=== PATIENT | male | born 1980 | race Caucasian/White ===

== ENCOUNTER 2016-08-03 17:04 | Emergency (ER) | payer BC ==
--- NOTE | 2016-08-03 17:29 | ER Document Report ---
ED Medical Screen (RME) - General Chief Complaint: Headache Stated Complaint: HEADACHE Notes: Migraine headache for 6 days with very limited intermittent relief I greeted and performed a rapid initial assessment of this patient. Comprehensive ED assessment and evaluation of the patient, analysis of test results and completion of the medical decision making process will be conducted by additional ED providers. TRAVEL OUTSIDE OF THE [place] IN LAST 30 DAYS: No - Related Data Allergies/Adverse Reactions: No Known Allergies Allergy (Verified 11/29/15 18:35) Past Medical History - Past Medical History Cardiac Medical History: Reports: Hx Hypercholesterolemia Musculoskeltal Medical History: Reports Hx Arthritis - BACK - Immunizations Hx Diphtheria, Pertussis, Tetanus Vaccination: Yes - UTD Physical Exam - Vital signs Vitals: Temp Pulse Resp BP Pulse Ox 99.1 F 73 16 140/79 H 97 08/03/16 17:26 08/03/16 17:26 08/03/16 17:26 08/03/16 17:26 08/03/16 17:26 Course - Vital Signs Vital signs: Temp Pulse Resp BP Pulse Ox 99.1 F 73 16 140/79 H 97 08/03/16 17:26 08/03/16 17:26 08/03/16 17:26 08/03/16 17:26 08/03/16 17:26
[2016-08-03] MEDS ORDERED: HYDROMORPHONE HCL INJ/PF 2 MG/ML AMPULE IM ONE (17:51)
[2016-08-03] MEDS ORDERED: PROMETHAZINE HCL INJ 50 MG/1 ML VIAL IM PRN (17:52)
--- NOTE | 2016-08-03 17:55 | ER Document Report ---
ED Headache - General Chief Complaint: Headache Stated Complaint: HEADACHE Time seen by provider: 17:53 TRAVEL OUTSIDE OF THE [place] IN LAST 30 DAYS: No - HPI Patient complains to provider of: "Migraine" - pt . with h/o migraine was recurrent typical migraine for the past 6 days. Plus N, no vomiting. Has no pain meds for migraine at home. - Related Data Allergies/Adverse Reactions: No Known Allergies Allergy (Verified 11/29/15 18:35) Past Medical History - General Information source: Patient, Relative - Social History Smoking Status: Unknown if Ever Smoked Cigarette use (# per day): No Chew tobacco use (# tins/day): No Smoking Education Provided: No Family History: Reviewed & Not Pertinent, CAD Patient has suicidal ideation: No Patient has homicidal ideation: No - Past Medical History Cardiac Medical History: Reports: Hx Hypercholesterolemia Neurological Medical History: Reports: Hx Migraine Renal/ Medical History: Denies: Hx Peritoneal Dialysis Musculoskeltal Medical History: Reports Hx Arthritis - BACK - Immunizations Hx Diphtheria, Pertussis, Tetanus Vaccination: Yes - UTD Review of Systems - Review of Systems Constitutional: No symptoms reported EENT: No symptoms reported Cardiovascular: No symptoms reported Respiratory: No symptoms reported Gastrointestinal: No symptoms reported Neurological/Psychological: See HPI, Headaches -: Yes All other systems reviewed and negative Physical Exam - Vital signs Vitals: Temp Pulse Resp BP Pulse Ox 99.1 F 73 16 140/79 H 97 08/03/16 17:26 08/03/16 17:26 08/03/16 17:26 08/03/16 17:26 08/03/16 17:26 - General General appearance: Appears well In distress: Mild - HEENT Pharynx: Normal Neck: Normal - Respiratory Respiratory status: No respiratory distress Breath sounds: Normal - Cardiovascular Rhythm: Regular Heart sounds: Normal auscultation - Neurological Neuro grossly intact: Yes Cognition: Normal Orientation: AAOx4 Motor strength normal: LUE, RUE, LLE, RLE Sensory: Normal Course - Re-evaluation Re-evalutation: 08/03/16 18:50 pt feels much better after pain meds -- [place] relieved -- will drive home - Vital Signs Vital signs: Temp Pulse Resp BP Pulse Ox 99.1 F 73 16 140/79 H 97 08/03/16 17:26 08/03/16 17:26 08/03/16 17:26 08/03/16 17:26 08/03/16 17:26 Discharge - Discharge Clinical Impression: Cephalalgia Qualifiers: Headache type: other headache syndrome Qualified Code(s): G44.89 - Other headache syndrome Condition: Stable Disposition: HOME, SELF-CARE Instructions: Headache ([facility]), Pain Medication Injection ([facility]) Additional Instructions: rest, take meds as prescribed, return if worse Prescriptions: Ondansetron HCl [Zofran 4 mg Tablet] 1 - 2 tab PO Q4H PRN #10 tablet PRN Reason: Tramadol HCl 50 mg PO BID #14 tablet Referrals: KAYCE CALDERON MD [ACTIVE STAFF] - Follow up as needed
[2016-08-03] MEDS ORDERED: ONDANSETRON 4 MG TAB.RAPDIS PO ONE (18:57)
[2016-08-03 19:09] VITALS: BP 132/75
== END 2016-08-03 19:08 | disposition home or self-care (01) ==
LOC: ER 17:04
DX: G44.89 Other headache syndrome (principal)
CPT/HCPCS: 99283; 96372; S0119; J1170

== ENCOUNTER → 2016-08-25 | Outpatient (CLI) | payer BC ==
[~2016-08-25] MED LIST: DIAZEPAM 5 MG TABLET ONE
== END ==
LOC: RAD 14:33
PROVIDERS: ATTEND Physician Assistant
DX: M54.2 Cervicalgia (principal); M51.27 Other intervertebral disc displacement, lumbosacral region; M48.02 Spinal stenosis, cervical region
CPT/HCPCS: 72141; 72148

== ENCOUNTER → 2016-10-15 | Outpatient (CLI) | payer BC | LOC: RAD 09:08 | PROVIDERS: ATTEND Student in an Organized Health Care Education/Training Program | DX: M54.16 Radiculopathy, lumbar region (principal); M54.14 Radiculopathy, thoracic region | CPT/HCPCS: 72070; 72110 ==

== ENCOUNTER 2016-11-04 18:49 | Emergency (ER) | payer BC ==
--- NOTE | 2016-11-04 20:17 | ER Document Report ---
ED Medical Screen (RME) - General Chief Complaint: Ankle Swelling Stated Complaint: ANKLE SWELLING Time seen by provider: 20:16 Mode of Arrival: Wheelchair Information source: Patient TRAVEL OUTSIDE OF THE [place] IN LAST 30 DAYS: No - HPI Patient complains to provider of: bilateral lower extremity swelling Onset: Yesterday Onset/Duration: Gradual Quality of pain: Achy, Fullness, Pressure Severity: Moderate Exacerbated by: Denies Relieved by: Denies Similar symptoms previously: No Recently seen / treated by doctor: Yes Notes: 11/04/16 20:16 Patient is a 36-year-old male who presents to the emergency room complaining of bilateral lower extremity pain and swelling been going on for the past 2 days, he denies a history of similar symptoms previously, no new medications or medication changes, he denies any cough, cold or congestion, no nausea, vomiting or diarrhea, no chest pain or shortness of breath, he did have an injury recently were he fell off of a roof landing on his back causing low back pain, he was seen and evaluated this emergency room for that complaint, no history of gout previously - Related Data Allergies/Adverse Reactions: No Known Allergies Allergy (Verified 11/04/16 19:32) Past Medical History - Past Medical History Cardiac Medical History: Reports: Hx Hypercholesterolemia Neurological Medical History: Reports: Hx Migraine Renal/ Medical History: Denies: Hx Peritoneal Dialysis Musculoskeltal Medical History: Reports Hx Arthritis - BACK - Immunizations Hx Diphtheria, Pertussis, Tetanus Vaccination: Yes - UTD Physical Exam - Vital signs Vitals: Temp Pulse Resp BP Pulse Ox 97.8 F 63 19 122/72 95 11/04/16 19:35 11/04/16 19:35 11/04/16 19:35 11/04/16 19:35 11/04/16 19:35 Course - Vital Signs Vital signs: Temp Pulse Resp BP Pulse Ox 97.8 F 63 19 122/72 95 11/04/16 19:35 11/04/16 19:35 11/04/16 19:35 11/04/16 19:35 11/04/16 19:35
[2016-11-04 20:52] LABS: ABSOLUTE BASOPHILS # (AUTO) 0.1 10^3/uL (0.0-0.2); ABSOLUTE EOSINOPHILS # (AUTO) 0.1 10^3/uL (0.0-0.6); ABSOLUTE MONOCYTES (AUTO) 0.5 10^3/uL (0.1-1.4); ABSOLUTE NEUT (AUTO) 4.7 10^3/uL (1.7-8.2); BASOPHILS % (AUTO) 0.8 % (0-2); EOSINOPHILS % (AUTO) 1.2 % (0-6); HEMATOCRIT 37.7 % (37.9-51.0); HEMOGLOBIN 13.2 g/dL (13.5-17.0); HGB HCT DIFFERENCE 1.9; LYMPHOCYTES % (AUTO) 35.6 % (13-45); MEAN CORPUSCULAR HEMOGLOBIN 32.5 pg (27.0-33.4); MEAN CORPUSCULAR HGB CONC 34.9 g/dL (32.0-36.0); MEAN CORPUSCULAR VOLUME 93 fl (80-97); MONOCYTES % (AUTO) 5.8 % (3-13); RED BLOOD COUNT 4.05 10^6/uL (4.35-5.55); RED CELL DISTRIBUTION WIDTH 13.7 % (11.5-14.0); SEGMENTED NEUTROPHILS % (AUTO) 56.6 % (42-78); WHITE BLOOD COUNT 8.4 10^3/uL (4.0-10.5)
[2016-11-04 21:05] LABS: ALANINE AMINOTRANSFERASE 42 U/L (21-72); ALBUMIN 4.4 g/dL (3.5-5.0); ALKALINE PHOSPHATASE 56 U/L (38-126); ANION GAP 12 (5-19); ASPARTATE AMINO TRANSFERASE 29 U/L (17-59); BILIRUBIN,DIRECT 0.2 mg/dL (0.0-0.4); BILIRUBIN,TOTAL 0.5 mg/dL (0.2-1.3); BLOOD UREA NITROGEN 16 mg/dL (7-20); CALCIUM 9.8 mg/dL (8.4-10.2); CARBON DIOXIDE 23 mmol/L (22-30); CHLORIDE 111 mmol/L (98-107); CREATININE RESULT 0.58 mg/dL (0.52-1.25); GLUCOSE 115 mg/dL (75-110); POTASSIUM 3.7 mmol/L (3.6-5.0); SODIUM 145.6 mmol/L (137-145); TOTAL PROTEIN 6.6 g/dL (6.3-8.2); URIC ACID 5.1 mg/dL (3.5-8.5)
[2016-11-04 21:14] LABS: AMORPHOUS SEDIMENT,URINE TRACE /HPF; APPEARANCE,URINE SLIGHTLY-CLOUDY; BILIRUBIN,URINE NEGATIVE (NEGATIVE); GLUCOSE, URINE NEGATIVE (NEGATIVE); KETONES,URINE NEGATIVE (NEGATIVE); LEUKOCYTE ESTERASE,URINE NEGATIVE (NEGATIVE); NITRITE,URINE NEGATIVE (NEGATIVE); PROTEIN,URINE NEGATIVE (NEGATIVE); URINE SPECIFIC GRAVITY 1.018; UROBILINOGEN,URINE NEGATIVE mg/dL (<2.0)
--- NOTE | 2016-11-04 22:30 | ER Document Report ---
ED General - General Chief Complaint: Ankle Swelling Stated Complaint: ANKLE SWELLING Mode of Arrival: Wheelchair Notes: Patient is a 36-year-old male who presents with concerns of bilateral ankle swelling. States the symptoms and present for the last 48 hours and unchanged since onset. Nothing improves or worsens his symptoms. He has no prior history of similar symptoms in the past. He denies any orthopnea, cough, shortness of breath, chest pain, decreased urination or vomiting. He has not seen his primary care doctor regarding today's concerns. Does note a mild, constant, throbbing pain to the area. TRAVEL OUTSIDE OF THE [place] IN LAST 30 DAYS: No - Related Data Allergies/Adverse Reactions: No Known Allergies Allergy (Verified 11/04/16 19:32) Past Medical History - General Information source: Patient - Social History Smoking Status: Current Every Day Smoker Chew tobacco use (# tins/day): No Frequency of alcohol use: Rare Drug Abuse: None Lives with: Spouse/Significant other Family History: Reviewed & Not Pertinent, CAD - Past Medical History Cardiac Medical History: Reports: Hx Hypercholesterolemia Neurological Medical History: Reports: Hx Migraine Renal/ Medical History: Denies: Hx Peritoneal Dialysis Musculoskeltal Medical History: Reports Hx Arthritis - BACK Surgical Hx: Negative - Immunizations Hx Diphtheria, Pertussis, Tetanus Vaccination: Yes - UTD Review of Systems - Review of Systems Notes: Constitutional: Negative for fever. HENT: Negative for sore throat. Eyes: Negative for visual changes. Cardiovascular: Negative for chest pain. Respiratory: Negative for shortness of breath. Gastrointestinal: Negative for abdominal pain, vomiting or diarrhea. Genitourinary: Negative for dysuria. Musculoskeletal: Negative for back pain. Skin: Negative for rash. Neurological: Negative for headaches, weakness or numbness. 10 point ROS negative except as marked above and in HPI. Physical Exam - Vital signs Vitals: Temp Pulse Resp BP Pulse Ox 97.8 F 63 19 122/72 95 11/04/16 19:35 11/04/16 19:35 11/04/16 19:35 11/04/16 19:35 11/04/16 19:35 Interpretation: Normal Notes: PHYSICAL EXAMINATION: GENERAL: Well-appearing, well-nourished and in no acute distress. HEAD: Atraumatic, normocephalic. EYES: Pupils equal round and reactive to light, extraocular movements intact, sclera anicteric, conjunctiva are normal. ENT: nares patent, oropharynx clear without exudates. Moist mucous membranes. NECK: Normal range of motion, supple without lymphadenopathy LUNGS: Breath sounds clear to auscultation bilaterally and equal. No wheezes rales or rhonchi. HEART: Regular rate and rhythm without murmurs ABDOMEN: Soft, nontender, normoactive bowel sounds. No guarding, no rebound. No masses appreciated. EXTREMITIES: Normal range of motion, 1+ pitting edema to the distal 1/5 of the bilateral tibial surface that is equal and symmetric. NEUROLOGICAL: No focal neurological deficits. Moves all extremities spontaneously and on command. PSYCH: Normal mood, normal affect. SKIN: Warm, Dry, normal turgor, no rashes or lesions noted. Course - Re-evaluation Re-evalutation: 11/04/16 22:28 Patient presents with equal and symmetric bilateral lower extremity edema up to the distal 1/5 of the tibial plateau. He has no symptoms to suggest CHF as the etiology is presentation today. The edema is symmetric and equal making an acute DVT unlikely. I do not suspect an IVC clot due to the minimal nature of the swelling as well as no risk factors for a large vessel thrombosis. Patient does not have any evidence of renal or liver failure on laboratories on clinical history. Suspect likely dependent edema in the setting of standing frequently and working out sign. I encouraged him to begin wearing compression stockings and follow-up closely with his primary care doctor.At this time will discharge with return precautions and follow-up recommendations. Verbal discharge instructions given a the bedside and opportunity for questions given. Medication warnings reviewed. Patient is in agreement with this plan and has verbalized understanding of return precautions and the need for primary care follow-up in the next 24-72 hours. - Vital Signs Vital signs: Temp Pulse Resp BP Pulse Ox 98.3 F 53 L 16 114/61 95 11/04/16 22:45 11/04/16 22:45 11/04/16 22:45 11/04/16 22:45 11/04/16 22:45 - Laboratory Result Diagrams: 11/04/16 20:30 11/04/16 20:30 Laboratory results interpreted by me: 11/04/16 11/04/16 20:30 20:30 RBC 4.05 L Hgb 13.2 L Hct 37.7 L Sodium 145.6 H Chloride 111 H Glucose 115 H Discharge - Discharge Clinical Impression: Bilateral lower extremity edema Condition: Good Disposition: HOME, SELF-CARE Additional Instructions: Please began wearing compression stockings at night to help reduce the swelling in your legs. Follow closely with your primary care doctor. Return if you began having shortness of breath, chest pain, pass out, or have any other symptoms that are worrisome to you.
[2016-11-05 01:12] VITALS: BP 114/61
== END 2016-11-04 22:45 | disposition home or self-care (01) ==
LOC: ER 18:49
DX: R60.0 Localized edema (principal); M25.579 Pain in unspecified ankle and joints of unspecified foot; F17.200 Nicotine dependence, unspecified, uncomplicated
CPT/HCPCS: 36415; 80053; 81001; 84550; 85025; 99283

== ENCOUNTER 2016-12-11 18:12 | Emergency (ER) | payer BC ==
[2016-12-11] MEDS ORDERED: KETOROLAC TROMETHAMINE 60 MG/2 ML SDV IM ONE (19:21)
[2016-12-11] MEDS ORDERED: MORPHINE SULFATE 10 MG/ML INJ IM ONE (19:21)
[2016-12-11] MEDS ORDERED: LIDOCAINE 5% (700 MG) TRANSDERMAL ADH..PATCH TP ONE (19:23)
--- NOTE | 2016-12-11 19:34 | ER Document Report ---
HPI - HPI Patient complains to provider of: right hip pain Onset: Other - 1 month Onset/Duration: Persistent Quality of pain: Achy Pain Level: 5 Context: Patient presents complaining of right hip pain for the past month. Patient states that occasionally pops when he ambulates. Pain is worse with flexion and abduction. Pt denies any hip injury. Patient does see pain management for chronic low back pain. Associated Symptoms: Other - right hip pain Exacerbated by: Movement Relieved by: Denies Similar symptoms previously: No Recently seen / treated by doctor: No - ROS ROS below otherwise negative: Yes Systems Reviewed and Negative: Yes All other systems reviewed and negative - CONSTITUTIONAL Constitutional: DENIES: Fever, Chills - NEURO Neurology: DENIES: Headache, Weakness - MUSCULOSKELETAL Musculoskeletal: REPORTS: Extremity pain - right hip - DERM Skin Color: Normal Skin Problems: None Past Medical History - General Information source: Patient - Social History Smoking Status: Current Every Day Smoker Chew tobacco use (# tins/day): No Frequency of alcohol use: None Drug Abuse: None 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 Lives with: Family Family History: Reviewed & Not Pertinent, CAD - Past Medical History Cardiac Medical History: Reports: Hx Hypercholesterolemia Neurological Medical History: Reports: Hx Migraine Renal/ Medical History: Denies: Hx Peritoneal Dialysis Musculoskeltal Medical History: Reports Hx Arthritis - BACK, Reports Other - chronic back pain Surgical Hx: Negative - Immunizations Hx Diphtheria, Pertussis, Tetanus Vaccination: Yes - UTD Vertical Provider Document - CONSTITUTIONAL Agree With Documented VS: Yes Exam Limitations: No Limitations General Appearance: WD/WN, No Apparent Distress - INFECTION CONTROL TRAVEL OUTSIDE OF THE [place] IN LAST 30 DAYS: No - HEENT HEENT: Atraumatic, Normocephalic - NECK Neck: Normal Inspection, Supple - RESPIRATORY Respiratory: Breath Sounds Normal, No Respiratory Distress, Chest Non-Tender O2 Sat by Pulse Oximetry: 94 - CARDIOVASCULAR Cardiovascular: Regular Rate, Regular Rhythm, No Murmur Pulses: Normal: Posterior tibial - BACK Back: Normal Inspection - MUSCULOSKELETAL/EXTREMETIES Musculoskeletal/Extremeties: MAEW, Tender - right anterior/lateral hip tenderness. No dislocation. Tenderness increases with flexion, abduction, and adduction - NEURO Level of Consciousness: Awake, Alert, Appropriate Motor/Sensory: No Motor Deficit, No Sensory Deficit - DERM Integumentary: Warm, Dry, No Rash Course - Re-evaluation Re-evalutation: 12/11/16 Patient initially stated that he was not taking any prescription medications. Reviewed of the patient's insurance profile as well as narcotic database demonstrates that patient should still be on hydrocodone 10/325 for 30 day supply that was filled on 11/15/2016. In addition to this patient takes Lyrica and sertraline. After patient was confronted with these findings, patient did acknowledge that he does take these medications but he has been taking more than he was prescribed of his hydrocodone and ran out of his pain medicine a few days ago. - Vital Signs Vital signs: Temp Pulse Resp BP Pulse Ox 98.0 F 89 16 110/63 94 12/11/16 18:31 12/11/16 18:31 12/11/16 18:31 12/11/16 18:31 12/11/16 18:31 - Diagnostic Test Radiology reviewed: Reports reviewed Discharge - Discharge Clinical Impression: Trochanteric bursitis of right hip Condition: Stable Disposition: HOME, SELF-CARE Instructions: Anti-Inflammatory Medication ([facility]), Bursitis ([facility]), Use of Crutches ([facility]), Family Physicians / Practices Additional Instructions: Return immediately for any new or worsening symptoms Followup with your primary care provider, call tomorrow to make a followup appointment Follow-up with orthopedic doctor for any continued pain or problems Follow-up with your pain management doctor for a refill of your chronic pain medications. Use over the counter lidocaine topical patch as directed for pain relief Prescriptions: Naproxen [Naprosyn 250 Nmg Tablet] 1 tab PO BID #14 tablet Forms: Return to Work Referrals: [facility] [Provider Group] - Follow up tomorrow [facility] [Provider Group] - Follow up in 3-5 days
--- NOTE | 2016-12-11 20:13 | RADIOLOGY REPORT (SQ) ---
EXAM DESCRIPTION: HIP RIGHT AP/LATERAL COMPLETED DATE/TIME: 12/11/2016 7:54 pm REASON FOR STUDY: right hip pain COMPARISON: None. NUMBER OF VIEWS: Two views. TECHNIQUE: AP pelvis and additional frog-leg view of the right hip. LIMITATIONS: None. FINDINGS: MINERALIZATION: Normal. RIGHT HIP: No fracture or dislocation. No worrisome bone lesions. LEFT HIP: No fracture or dislocation. No worrisome bone lesions. PUBIS AND ISCHIUM: No fracture. PELVIS: No fracture. SACRUM: No fracture or dislocation. No worrisome bone lesions. LOWER LUMBAR SPINE: No fracture or dislocation. No worrisome bone lesions. No significant disc disea se. SOFT TISSUES: No findings. OTHER: No other significant finding. IMPRESSION: NO RADIOGRAPHIC EVIDENCE OF ACUTE INJURY. TECHNICAL DOCUMENTATION: JOB ID: [id number] [employer]- All Rights Reserved
[2016-12-11 20:29] VITALS: BP 113/59
== END 2016-12-11 20:34 | disposition home or self-care (01) ==
LOC: ER 18:12
DX: M70.61 Trochanteric bursitis, right hip (principal); M25.551 Pain in right hip; F17.200 Nicotine dependence, unspecified, uncomplicated; M54.5 Low back pain; G89.29 Other chronic pain; Z79.899 Other long term (current) drug therapy
CPT/HCPCS: 99283; 96372; 73502; J1885; J2270

== ENCOUNTER → 2017-01-02 | Outpatient (CLI) | payer BC ==
--- NOTE | 2017-01-03 09:08 | RADIOLOGY REPORT (SQ) ---
EXAM DESCRIPTION: SHOULDER BILAT 2 OR MORE VIEWS COMPLETED DATE/TIME: 01/02/2017 6:17 pm REASON FOR STUDY: PAIN IN UNSPECIFIED SHOULDER M25.551 PAIN IN RIGHT HIP COMPARISON: None. NUMBER OF VIEWS: Three views. TECHNIQUE: Internal rotation, external rotation, and Y view images acquired of the right and left isidroer. LIMITATIONS: None. FINDINGS: RIGHT: MINERALIZATION: Normal. BONES: No acute fracture or dislocation. No worrisome bone lesions. JOINTS: No glenohumeral dislocation. No widening of the acromioclavicular joint. Minimal AC joint b ernie spurring. Subacromial space maintained. VISUALIZED LUNGS AND RIBS: No pneumothorax. No rib fracture. SOFT TISSUES: No radiopaque foreign body. OTHER: No other significant finding. LEFT: MINERALIZATION: Normal. BONES: No acute fracture or dislocation. No worrisome bone lesions. JOINTS: No glenohumeral dislocation. No widening of the acromioclavicular joint. Minimal acromiocla vicular joint bony spurring. Subacromial space maintained. VISUALIZED LUNGS AND RIBS: No pneumothorax. No rib fracture. SOFT TISSUES: No radiopaque foreign body. OTHER: No other significant finding. IMPRESSION: NEGATIVE STUDY OF THE RIGHT AND LEFT SHOULDERS. NO RADIOGRAPHIC EVIDENCE OF ACUTE INJURY . TECHNICAL DOCUMENTATION: JOB ID: [id number] [employer]- All Rights Reserved
--- NOTE | 2017-01-04 08:56 | RADIOLOGY REPORT (SQ) ---
EXAM DESCRIPTION: MRI RT LOWER JOINT WITHOUT COMPLETED DATE/TIME: 01/02/2017 5:50 pm REASON FOR STUDY: PAIN IN RIGHT HIP M25.551 PAIN IN RIGHT HIP COMPARISON: None. TECHNIQUE: Righthip images acquired and stored on PACS. Multiplanar images to include fat sensitive sequences as T1, fluid sensitive sequences as T2/STIR and gradient echo sequences. Large FOV fat and fluid sensitive sequences include pelvis and opposite hip. LIMITATIONS: None. FINDINGS: BONE CORTEX AND MARROW: No generalized marrow replacement. No occult fracture. No worriso me bone lesions. TARGETED HIP: FEMORAL HEAD: No occult fracture. Osteophyte at the head neck junction. ACETABULUM: No acetabular dysplasia. No subchondral cysts. LABRUM: Small paralabral cyst indicating labral tear. TROCHANTER: No trochanteric bursal effusion. No edema/fluid at the insertions of the gluteus medius and gluteus minimus. OPPOSITE HIP: Limited evaluation. No worrisome bone lesions. No significant effusion. PELVIS, LOWER LUMBAR SPINE, SACROILIAC JOINTS: PELVIS : No insufficiency/stress fractures. No significant degenerative changes. Sacroiliac joints normal. L SPINE: No significant osteophytes or degenerative changes of the visualized lumbar spine. MUSCLES AND SOFT TISSUES: Adductors and piriformis normal. Abductors and greater trochanteric bursa n ormal without edema or fluid. Iliopsoas bursa without fluid. Hamstring attachments without edema or t ear. PELVIC SOFT TISSUES: No masses or adenopathy. SCIATIC NERVE: Identified, without masses or abnormal signal. OTHER: No other significant finding. IMPRESSION: Femoroacetabular impingement of the right hip with a small paralabral cyst indicating la bral tear. TECHNICAL DOCUMENTATION: JOB ID: [id number]- All Rights Reserved
== END ==
LOC: RAD 16:22
PROVIDERS: ATTEND Physician Assistant
DX: M25.551 Pain in right hip (principal); M25.519 Pain in unspecified shoulder

== ENCOUNTER 2017-01-08 21:01 | Emergency (ER) | payer BC ==
[2017-01-08] MEDS ORDERED: OXYCODONE HCL IR 5 MG TABLET PO ONE (23:57)
--- NOTE | 2017-01-09 00:04 | ER Document Report ---
ED Medical Screen (RME) - General Chief Complaint: Toothache Stated Complaint: CHEEK PAIN Time Seen by Provider: 01/08/17 23:46 TRAVEL OUTSIDE OF THE [place] IN LAST 30 DAYS: No - HPI Notes: 01/08/17 23:57 Patient is a 36-year-old male who presents with rt lower dental pain and facial swelling x1 day. Pt states that he did hit the side of his jaw/face against a type of scaffolding when he was at work. Pt also c/o a headache. He is still eating and drinking with no problems. Pt reports poor dentition. He has had otc meds with minimal relief. Denies any fever, sore throat, dysphagia, dyspnea , sob, cough, wheeze, cp, palp, abd pain, n/v. - Related Data Allergies/Adverse Reactions: No Known Allergies Allergy (Verified 11/04/16 19:32) Past Medical History - Past Medical History Cardiac Medical History: Reports: Hx Hypercholesterolemia Neurological Medical History: Reports: Hx Migraine Renal/ Medical History: Denies: Hx Peritoneal Dialysis Musculoskeltal Medical History: Reports Hx Arthritis - BACK - Immunizations Hx Diphtheria, Pertussis, Tetanus Vaccination: Yes - UTD Physical Exam - Vital signs Vitals: Temp Pulse Resp BP Pulse Ox 98.2 F 72 20 124/81 97 01/08/17 21:51 01/08/17 21:51 01/08/17 21:51 01/08/17 21:51 01/08/17 21:51 - HEENT Ears: Normal External canal: Normal Tympanic membrane: Normal Sinus: Normal Nasal: Normal Mouth/Lips: Caries, Dental fracture, Other - swelling rt lower jaw, + tenderness. Teeth diagram: 1 - + tenderness, loose, gingival erythema. no purulent d/c. Pharynx: Normal Neck: Normal - non-tender. Course - Vital Signs Vital signs: Temp Pulse Resp BP Pulse Ox 98.2 F 72 20 124/81 97 01/08/17 21:51 01/08/17 21:51 01/08/17 21:51 01/08/17 21:51 01/08/17 21:51
[2017-01-09] MEDS ORDERED: AMOXICILLIN TR/POT CLAVULANATE 500-125 MG TAB PO ONE (00:27)
[2017-01-09] MEDS ORDERED: HYDROCODONE/ACETAMINOPHEN 5-325 MG 6 TAB/DSPK PO PRN (00:27)
[2017-01-09] MEDS ORDERED: IBUPROFEN 600 MG TABLET PO ONE (00:27)
--- NOTE | 2017-01-09 00:29 | ER Document Report ---
ED General - General Chief Complaint: Toothache Stated Complaint: CHEEK PAIN Time Seen by Provider: 01/08/17 23:46 Notes: Patient is a 36-year-old male who presents with 12 hours of progressively worsening throbbing, constant, aching pain to the right lower face. Dates that he has had aching pain to this area for the past several days but got worse after he hit his face on a metal pole at work. He has not seen a dentist regarding today's concerns. He denies any associated fever, difficulty breathing or swallowing. No history of similar symptoms in the past. TRAVEL OUTSIDE OF THE [place] IN LAST 30 DAYS: No - Related Data Allergies/Adverse Reactions: No Known Allergies Allergy (Verified 11/04/16 19:32) Past Medical History - General Information source: Patient - Social History Smoking Status: Current Every Day Smoker Chew tobacco use (# tins/day): No Frequency of alcohol use: Occasional Drug Abuse: None Lives with: Spouse/Significant other Family History: Reviewed & Not Pertinent, CAD Patient has suicidal ideation: No Patient has homicidal ideation: No - Past Medical History Cardiac Medical History: Reports: Hx Hypercholesterolemia Neurological Medical History: Reports: Hx Migraine Renal/ Medical History: Denies: Hx Peritoneal Dialysis Musculoskeltal Medical History: Reports Hx Arthritis - BACK - Immunizations Hx Diphtheria, Pertussis, Tetanus Vaccination: Yes - UTD Review of Systems - Review of Systems Notes: Constitutional: Negative for fever. HENT: Positive for poor dentition and facial swelling Eyes: Negative for visual changes. Cardiovascular: Negative for chest pain. Respiratory: Negative for shortness of breath. Gastrointestinal: Negative for abdominal pain, vomiting or diarrhea. Genitourinary: Negative for dysuria. Musculoskeletal: Negative for back pain. Skin: Negative for rash. Neurological: Negative for headaches, weakness or numbness. 10 point ROS negative except as marked above and in HPI. Physical Exam - Vital signs Vitals: Temp Pulse Resp BP Pulse Ox 98.2 F 72 20 124/81 97 01/08/17 21:51 01/08/17 21:51 01/08/17 21:51 01/08/17 21:51 01/08/17 21:51 Interpretation: Normal Notes: PHYSICAL EXAMINATION: GENERAL: Well-appearing, well-nourished and in no acute distress. HEAD: Atraumatic, normocephalic. EYES: sclera anicteric, conjunctiva are normal. ENT: Moist mucous membranes. There is mild swelling to the right lower jaw that is exquisitely painful on palpation. No trismus. Jaw aligns appropriately. There is diffusely poor dentition. Tooth #28 is cracked open and does have purulent drainage NECK: Normal range of motion LUNGS: Normal work of breathing HEART: 2+ radial pulses bilaterally EXTREMITIES: no pitting or edema. No cyanosis. NEUROLOGICAL: No focal neurological deficits. Moves all extremities spontaneously and on command. PSYCH: Normal mood, normal affect. SKIN: Warm, Dry, normal turgor, no rashes or lesions noted. Course - Re-evaluation Re-evalutation: 01/09/17 00:27 Presentation is most consistent with likely an infected tooth. Tooth #28 is open with purulent expression at the base with associated gumline swelling. There is no pain on direct palpation of the mandible. Although patient does report that he did hit the area today and he believes the pain started shortly thereafter he has had significant pain in this area for several days. He has declined an x-ray to exclude a mandible fracture. I think this is reasonable as this appears much more consistent with gum and facial swelling secondary to an infected tooth. Airway is patent. Vitals within normal limits. Patient is able swallow without any difficulty. There is no significant facial swelling. Patient will be started on antibiotics and a limited number of pain medications. I've instructed to follow-up with dentistry as earliest ability for definitive management. Return precautions and follow-up recommendations have been discussed at length. - Vital Signs Vital signs: Temp Pulse Resp BP Pulse Ox 98.2 F 64 18 139/78 H 97 01/08/17 21:51 01/09/17 00:43 01/09/17 00:43 01/09/17 00:43 01/09/17 00:43 Discharge - Discharge Clinical Impression: Dental infection Condition: Good Disposition: HOME, SELF-CARE Additional Instructions: You have been seen for dental pain. It is very important that you follow-up with a dentist for definitive care. Please return if you develop fever greater than 101, swelling in your face, vomiting, difficulty breathing or swallowing, or any other symptoms that are concerning to you. For pain you should take ibuprofen 600 mg every 6 hours as needed. Prescriptions: Amox Tr/Potassium Clavulanate [Augmentin 875-125 Tablet] 1 tab PO BID 10 Days
[2017-01-09 00:44] VITALS: BP 139/78
== END 2017-01-09 00:43 | disposition home or self-care (01) ==
LOC: ER 21:01
DX: K04.7 Periapical abscess without sinus (principal); K08.89 Other specified disorders of teeth and supporting structures; F17.200 Nicotine dependence, unspecified, uncomplicated
CPT/HCPCS: 99282

== ENCOUNTER → 2017-03-24 | Outpatient (CLI) | payer BC ==
--- NOTE | 2017-03-24 16:10 | RADIOLOGY REPORT (SQ) ---
EXAM DESCRIPTION: MRI LT UPPER JOINT WITHOUT COMPLETED DATE/TIME: 03/24/2017 2:36 pm REASON FOR STUDY: L SHOULDER PAIN M25.519 PAIN IN UNSPECIFIED SHOULDER COMPARISON: Bilateral shoulder plain films 01/02/2017 TECHNIQUE: Left shoulder images acquired and stored on PACS. Multiplanar imaging to include fat sens itive sequences such as T1, water sensitive sequences such as FST2/STIR, cartilage sensitive sequence s such as FSPD/gradient-echo sequences. LIMITATIONS: None. FINDINGS: BONE MARROW AND CORTEX: No worrisome bone lesions or marrow replacement. No occult fractur es. Small 5 mm subcortical cyst anterior left humeral head greater tuberosity axial image 8. JOINT OR BURSAL EFFUSION: No significant joint or bursal fluid. No suggestion of loose bodies. GLENO-HUMERAL ARTICULATION: Normal articulation. No subluxation. No cystic change. No osteophytes or cartilage loss. ACROMION AND AC JOINT: Type 2 with bulky bony spurring at the AC joint. This mildly flattens the galindo perior edge of the supraspinatus muscle. Minimal edema in the distal clavicle. No AC joint widening . These changes are best shown on sagittal image 12 and coronal image 9. ROTATOR CUFF AND INTERVAL: There is tendinopathy with a high-grade partial thickness tear anterior e dge supraspinatus tendon, best shown on coronal image 7 and sagittal image 5. There is tendinopathy with undersurface partial thickness tear of the posterior edge infraspinatus tendon best shown on cor onal image 14 and sagittal image 5. No rotator interval tear. No rotator interval thickening to suggest adhesive capsulitis. LABRUM AND BICEPS LABRAL COMPLEX: Intra-articular long head biceps tendon is high signal from tendi nopathy. A tiny superior labral tear at its insertion is present on axial image 6 and sagittal image 13 without paralabral cyst. REMAINDER OF LABRUM AND IGHL : No gross tear or paralabral cyst formation. Labral evaluation is less than optimal without joint distention. Small axillary recess with thickening of IGHL suggesting adh esive capsulitis. PERIARTICULAR AND ADJACENT SOFT TISSUES: No masses or abnormal nodes. OTHER: No other significant finding. IMPRESSION: Acromioclavicular joint hypertrophy High-grade tendinopathy/ partial thickness tears of the anterior edge supraspinatus tendon, and poste rior edge infraspinatus tendon Intra-articular long head biceps tendinopathy with small superior labral tear. No paralabral cysts. Small axillary recess with thickened inferior glenohumeral ligament, question adhesive capsulitis TECHNICAL DOCUMENTATION: JOB ID: [id number] [employer]- All Rights Reserved
== END ==
LOC: RAD 03-17 10:29
PROVIDERS: ATTEND Physician Assistant
DX: M25.512 Pain in left shoulder (principal)

== ENCOUNTER → 2017-04-22 | Outpatient (CLI) | payer BC ==
--- NOTE | 2017-04-23 12:59 | RADIOLOGY REPORT (SQ) ---
EXAM DESCRIPTION: MRI RT UPPER JOINT WITHOUT COMPLETED DATE/TIME: 04/22/2017 7:17 pm REASON FOR STUDY: PAIN IN RIGHT SHOULDER M25.511 PAIN IN RIGHT SHOULDER COMPARISON: None. TECHNIQUE: Right shoulder images acquired and stored on PACS. Multiplanar imaging to include fat sen sitive sequences such as T1, water sensitive sequences such as FST2/STIR, cartilage sensitive sequenc es such as FSPD/gradient-echo sequences. LIMITATIONS: None. FINDINGS: BONE MARROW AND CORTEX: No worrisome bone lesions or marrow replacement. No occult fractur es. JOINT OR BURSAL EFFUSION: There is a small to moderate amount of fluid in the right subacromial/ subd eltoid bursa. Trace glenohumeral joint fluid. GLENO-HUMERAL ARTICULATION: Normal articulation. No subluxation. No cystic change. No osteophytes or cartilage loss. ACROMION AND AC JOINT: Type 2 acromion with osteoarthritis, joint space narrowing at the acromioclav icular joint with bone spurs, edema in the distal clavicle and acromion. ROTATOR CUFF AND INTERVAL: There is high signal in the anterior half of the supraspinatus tendon supe rficial surface from tendinopathy. Reactive marrow edema is present in the right humeral head greate r tuberosity anterior aspect, at the supraspinatus attachment. Infraspinatus intact, subscapularis i ntact. No rotator interval tear. No rotator interval thickening to suggest adhesive capsulitis. LABRUM AND BICEPS LABRAL COMPLEX: Intra-articular long head biceps tendon high in signal as it ente rs the joint from tendinopathy. Attachment to the superior labrum is intact. However, the remainder of the anterior labrum is diffusely small likely from diffuse degeneration. No paralabral cysts. REMAINDER OF LABRUM AND IGHL : No gross tear or paralabral cyst formation. Labral evaluation is less than optimal without joint distention. There is thickening of IGHL suggesting adhesive capsulitis. PERIARTICULAR AND ADJACENT SOFT TISSUES: No masses or abnormal nodes. OTHER: No other significant finding. IMPRESSION: Acromioclavicular joint arthropathy Tendinopathy in the anterior half supraspinatus tendon with reactive marrow edema in the anterior lef t humeral head greater tuberosity. Fluid in the subacromial/subdeltoid bursa Small axillary recess of the right glenohumeral joint with thickened inferior glenohumeral ligament w orrisome for adhesive capsulitis TECHNICAL DOCUMENTATION: JOB ID: [id number] [facility] [employer]- All Rights Reserved
== END ==
LOC: RAD 18:18
PROVIDERS: ATTEND Physician Assistant
DX: M25.511 Pain in right shoulder (principal)

== ENCOUNTER 2017-05-13 19:23 | Emergency (ER) | payer BC ==
--- NOTE | 2017-05-14 00:51 | ER Document Report ---
ED Neck/Back Problem - General Chief Complaint: Back Pain Stated Complaint: BACK PAIN Time Seen by Provider: 05/14/17 00:50 Notes: The patient is a 36-year-old male, past medical history chronic back pain, RA, right hip labrum tear, presents with left lower back pain after he was in physical therapy for his labrum tear and started to have the back pain. Patient is also having some tingling in his feet. He has had this in the past several years ago that resolved without any intervention. He took Tylenol Motrin without much relief of his pain. He denies saddle anesthesia, change in bowel or bladder, difficulty walking, fevers, history of IVDA, nausea, vomiting or urinary symptoms. TRAVEL OUTSIDE OF THE [place] IN LAST 30 DAYS: Yes COUNTRY TRAVELED TO/FROM: [place] - Related Data Allergies/Adverse Reactions: No Known Allergies Allergy (Verified 11/04/16 19:32) Past Medical History - General Information source: Patient - Social History Smoking Status: Unknown if Ever Smoked Family History: Reviewed & Not Pertinent, CAD Patient has suicidal ideation: No Patient has homicidal ideation: No - Past Medical History Cardiac Medical History: Reports: Hx Hypercholesterolemia Neurological Medical History: Reports: Hx Migraine Renal/ Medical History: Denies: Hx Peritoneal Dialysis Musculoskeltal Medical History: Reports Hx Arthritis - BACK - Immunizations Hx Diphtheria, Pertussis, Tetanus Vaccination: Yes - UTD Review of Systems - Review of Systems Notes: REVIEW OF SYSTEMS: CONSTITUTIONAL: -fevers, -chills EENT: -eye pain, -difficulty swallowing, -nasal congestion CARDIOVASCULAR:-chest pain, -syncope. RESPIRATORY: -cough, -SOB GASTROINTESTINAL: -abdominal pain, - nausea, -vomiting, -diarrhea GENITOURINARY: -dysuria, -hematuria MUSCULOSKELETAL: +back pain, -neck pain SKIN: -rash or skin lesions. HEMATOLOGIC: -easy bruising or bleeding. LYMPHATIC: -swollen, enlarged glands. NEUROLOGICAL: -altered mental status or loss of consciousness, -headache, - neurologic symptoms PSYCHIATRIC: -anxiety, -depression. ALL OTHER SYSTEMS REVIEWED AND NEGATIVE. Physical Exam - Vital signs Vitals: Temp Pulse Resp BP Pulse Ox 98.1 F 81 18 112/89 H 96 05/13/17 19:54 05/13/17 19:54 05/13/17 19:54 05/13/17 19:54 05/13/17 19:54 - Notes Notes: PHYSICAL EXAMINATION: GENERAL: Well-appearing, well-nourished and in no acute distress. HEAD: Atraumatic, normocephalic. EYES: Pupils equal round and reactive to light, extraocular movements intact, sclera anicteric, conjunctiva are normal. ENT: nares patent, oropharynx clear without exudates. Moist mucous membranes. NECK: Normal range of motion, supple without lymphadenopathy LUNGS: Breath sounds clear to auscultation bilaterally and equal. No wheezes rales or rhonchi. HEART: Regular rate and rhythm without murmurs ABDOMEN: Soft, nontender, normoactive bowel sounds. No guarding, no rebound. No masses appreciated. EXTREMITIES: Normal range of motion, no pitting or edema. No cyanosis. Strong DP and PT pulses. BACK: Left lumbar paraspinal tenderness and spasming. No midline tenderness. NEUROLOGICAL: Cranial nerves grossly intact. Normal speech, normal gait. 5/5 strength in all 4 extremities. Decreased sensation in B/L feet. PSYCH: Normal mood, normal affect. SKIN: Warm, Dry, normal turgor, no rashes or lesions noted. Course - Re-evaluation Re-evalutation: Patient has no red flag signs for low back pain at this time. Lumbar x-ray does not show any acute fractures. We will treat his left lumbar paraspinal pain and spasming with anti-inflammatories, Robaxin and Lidoderm patches with follow-up at his orthopedic surgeon. - Vital Signs Vital signs: Temp Pulse Resp BP Pulse Ox 98.1 F 81 18 112/89 H 96 05/13/17 19:54 05/13/17 19:54 05/13/17 19:54 05/13/17 19:54 05/13/17 19:54 - Diagnostic Test Radiology reviewed: Image reviewed, Reports reviewed Radiology results interpreted by me: Lumbar x-ray: NAD Discharge - Discharge Clinical Impression: Lower back pain Qualifiers: Chronicity: acute Back pain laterality: left Sciatica presence: without sciatica Qualified Code(s): M54.5 - Low back pain Condition: Stable Disposition: HOME, SELF-CARE Additional Instructions: LOW BACK PAIN: Three out of every four people will have an episode of disabling back pain during their lifetime. Most commonly the pain is due to straining of the muscles and ligaments in the low back. Usual treatment includes: (1) Rest on a firm surface. Avoid lying on your stomach. (2) Ice pack the painful area. After a few days, gentle heat may be used intermittently to relax the area, or ice packs can be continued. (3) Medication may be needed -- muscle relaxers and antiinflammatory medicines are commonly used. (4) As the back improves, exercises are prescribed to strengthen the back and abdominal muscles. Your doctor will advise you on the proper care for your back at each stage in your recovery. You may be better in a few days -- or healing may take several weeks. If new symptoms of a "herniated disc" (radiation of pain, numbness, or tingling down the back of the leg or weakness in the leg) occur, you should be re-examined. Further testing may be necessary. MUSCLE RELAXERS: Muscle relaxing medications are usually prescribed for acute muscle spasm or injury to the neck and back. They are often combined with antiinflammatory pain medication for increased relief. You may stop the muscle relaxer when the pain and stiffness have improved. Start the medication again if spasms recur. Muscle relaxers may cause drowsiness, especially with the first dose. Do not operate machinery or drive while under the effects of the medication. Most muscle relaxers last up to 24 hours. Do not combine the medication with alcohol. ICE PACKS: Apply ice packs frequently against the painful area. Many different schedules are recommended, such as "20 minutes on, 20 minutes off" or "one hour ice, two hours rest." If you need to work, you may need to go longer between ice treatments. You should plan to have the area ice packed AT LEAST one fourth of the time. The ice should be applied over the wrap, tape, or splint, or over a layer of cloth -- not directly against the skin. Some ice bags have a built-in cloth and can be put directly on the skin. WARM PACKS: After approximately two days, apply gentle heat (such as a heating pad or hot water bottle) for about 20 to 30 minutes about every two hours -- at least four times daily. Warmth and elevation will help you make a more rapid recovery , and will ease the pain considerably. Do not use HOT heat, and never apply heat for longer than 30 minutes. The continuous heat can invisibly damage skin and muscles -- even when no burn is seen on the surface. Damaged muscles can make you MORE sore. FOLLOW-UP CARE: If you have been referred to a physician for follow-up care, call the physician s office for an appointment as you were instructed or within the next two days. If you experience worsening or a significant change in your symptoms, notify the physician immediately or return to the Emergency Department at any time for re-evaluation. Prescriptions: Lidocaine [Lidoderm 5% (700 mg) Transdermal Patch] 1 patch TP DAILY #10 adh..patch Methocarbamol [Robaxin 500 mg Tablet] 500 mg PO Q4H PRN #15 tablet PRN Reason: Referrals: EVELIA HURLEY, [employer] [Primary Care Provider] - Follow up as needed ROSELIA BAUTISTA MD [ACTIVE STAFF] - Follow up as needed
[2017-05-14] MEDS ORDERED: IBUPROFEN 600 MG TABLET PO ONE (01:02)
[2017-05-14] MEDS ORDERED: LIDOCAINE 5% (700 MG) TRANSDERMAL ADH..PATCH TP ONE (01:02)
[2017-05-14] MEDS ORDERED: METHOCARBAMOL 500 MG TABLET PO ONE (01:02)
--- NOTE | 2017-05-14 02:33 | RADIOLOGY REPORT (SQ) ---
EXAM DESCRIPTION: L SPINE WHOLE COMPLETED DATE/TIME: 05/14/2017 1:58 am REASON FOR STUDY: back injury, midline tenderness COMPARISON: None. NUMBER OF VIEWS: Five views including obliques. TECHNIQUE: AP, lateral, oblique, and sacral radiographic images acquired of the lumbar spine. LIMITATIONS: None. FINDINGS: MINERALIZATION: Normal. SEGMENTATION: Normal. No transitional anatomy. ALIGNMENT: Normal. VERTEBRAE: Minimal developmental L1 and T12 anterior vertebral wedging. DISCS: Mild lower thoracic disc desiccation. POSTERIOR ELEMENTS: Pedicles and facets are intact. No pars defect or posterior arch defects. HARDWARE: None in the spine. PARASPINAL SOFT TISSUES: Normal. PELVIS: Intact as visualized. No fractures or worrisome bone lesions. SI joints intact. OTHER: No other significant finding. IMPRESSION: No acute findings. TECHNICAL DOCUMENTATION: JOB ID: [id number] [employer]- All Rights Reserved
[2017-05-14 03:03] VITALS: BP 124/68
== END 2017-05-14 03:02 | disposition home or self-care (01) ==
LOC: ER 19:23
DX: M54.5 Low back pain (principal); M54.9 Dorsalgia, unspecified; G89.29 Other chronic pain; M06.9 Rheumatoid arthritis, unspecified; R20.0 Anesthesia of skin
CPT/HCPCS: 72110; 99283

== ENCOUNTER 2019-02-16 07:44 | Emergency (ER) | payer SELFPAY ==
[2019-02-16] MEDS ORDERED: KETOROLAC TROMETHAMINE 60 MG/2 ML SDV IM ONE (09:00)
[2019-02-16] MEDS ORDERED: CYCLOBENZAPRINE HCL 10 MG TABLET PO ONE (09:00)
[2019-02-16] MEDS ORDERED: DEXTROSE 5% IV ONE (09:13)
[2019-02-16] MEDS ORDERED: 1/4 NORMAL SALINE IV ONE (09:13)
--- NOTE | 2019-02-16 09:35 | RADIOLOGY REPORT (SQ) ---
EXAM DESCRIPTION: L SPINE WHOLE COMPLETED DATE/TIME: 02/16/2019 9:17 am REASON FOR STUDY: back pain COMPARISON: 05/14/2017 NUMBER OF VIEWS: Five views including obliques. TECHNIQUE: AP, lateral, oblique, and sacral radiographic images acquired of the lumbar spine. LIMITATIONS: None. FINDINGS: MINERALIZATION: Normal. SEGMENTATION: Normal. No transitional anatomy. ALIGNMENT: Normal. VERTEBRAE: Maintained height. No fracture or worrisome bone lesion. DISCS: Preserved height. No significant osteophytes or end plate irregularity. POSTERIOR ELEMENTS: Pedicles and facets are intact. No pars defect or posterior arch defects. HARDWARE: None in the spine. PARASPINAL SOFT TISSUES: Normal. PELVIS: Intact as visualized. No fractures or worrisome bone lesions. SI joints intact. OTHER: No other significant finding. IMPRESSION: No fracture or dislocation of the lumbar spine. Disc spaces and vertebral body heights are preserved. TECHNICAL DOCUMENTATION: JOB ID: [id number] [employer]- All Rights Reserved Reading location - IP/workstation name: [email or web address]
--- NOTE | 2019-02-16 09:48 | ER Document Report ---
HPI - HPI Patient complains to provider of: back pain Time Seen by Provider: 02/16/19 08:43 Onset: Yesterday Onset/Duration: Sudden, Persistent Quality of pain: Achy Severity: Severe Pain Level: 4 Context: This 38-year-old male presents emergency department with complaints of left- sided low back pain. Reports that he bent over yesterday and felt pain. Reports he was at work when this happened but he was not lifting anything heavy. 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 He repeats the pain does not radiate anywhere it stays in the lower left side of his back. Denies IV drug use. Denies numbness or tingling. Reports he is voiding without problems last bowel movement was this a.m. and it was normal. And is under pain management [facility]. He reports he does receive injections to the right side of his back. He has an appointment with him tomorrow. Denies other symptoms such as fever vomiting diarrhea. Reports it hurts when he goes from sitting to standing when he bends over. Patient did take his hydrocodone this morning but it did not help the pain. Patient is asking for x-rays. Associated Symptoms: None Exacerbated by: Standing, Other - bending Relieved by: Denies - CONSTITUTIONAL Constitutional: DENIES: Fever, Chills - EENT EENT: DENIES: Sore Throat, Ear Pain, Eye problems - NEURO Neurology: DENIES: Headache, Weakness, Vision blurred, Dizzinesss / Vertigo - CARDIOVASCULAR Cardiovascular: DENIES: Chest pain - RESPIRATORY Respiratory: DENIES: Trouble Breathing, Coughing - GASTROINTESTINAL Gastrointestinal: DENIES: Abdominal Pain, Black / Bloody Stools - URINARY Urinary: DENIES: Dysuria, Urgency, Frequency - MUSCULOSKELETAL Musculoskeletal: DENIES: Extremity pain Past Medical History - General Information source: Patient - Social History Smoking Status: Current Every Day Smoker Cigarette use (# per day): Yes Chew tobacco use (# tins/day): No Frequency of alcohol use: None Drug Abuse: None 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 Lives with: Family Family History: Reviewed & Not Pertinent, CAD Patient has suicidal ideation: No Patient has homicidal ideation: No - Past Medical History Cardiac Medical History: Reports: Hx Hypercholesterolemia Neurological Medical History: Reports: Hx Migraine Renal/ Medical History: Denies: Hx Peritoneal Dialysis Musculoskeletal Medical History: Reports Hx Arthritis - BACK, Reports Other - chronic back pain Past Surgical History: Reports: Hx Orthopedic Surgery - right hip and shoulder - Immunizations Hx Diphtheria, Pertussis, Tetanus Vaccination: Yes - UTD Vertical Provider Document - CONSTITUTIONAL Agree With Documented VS: Yes Exam Limitations: No Limitations, Physical Impairment General Appearance: WD/WN - INFECTION CONTROL TRAVEL OUTSIDE OF THE [place]. IN LAST 30 DAYS: No COUNTRY TRAVELED TO/FROM: [place] - [facility] HEENT: Atraumatic, Normocephalic - NECK Neck: Normal Inspection, Supple. negative: Lymphadenopathy-Left, Lymphadenopathy-Right - RESPIRATORY Respiratory: Breath Sounds Normal, No Respiratory Distress - CARDIOVASCULAR Cardiovascular: Regular Rate, Regular Rhythm - GI/ABDOMEN Gastrointestinal: Abdomen Soft - BACK Back: Normal Inspection - No obvious deformity full range of motion good reflexes good distal movement and sensation stands on tiptoes ambulates without problems. No erythema swelling or warmth to his back. - MUSCULOSKELETAL/EXTREMETIES Musculoskeletal/Extremeties: DELIA TURPIN - NEURO Level of Consciousness: Awake, Alert, Appropriate Motor/Sensory: No Motor Deficit - DERM Integumentary: Warm, Dry, No Rash Adult Front & Back Diagram: 1 - Patient complains of pain when standing or sitting. No pain on palpation no vertebral tenderness Course - Re-evaluation Re-evalutation: 02/16/19 09:54 Lumbar Spine X-Ray 02/16/19 09:00 IMPRESSION: No fracture or dislocation of the lumbar spine. Disc spaces and vertebral body heights are preserved. 38-year-old male presents emergency department with left-sided low back pain. Patient does have history of chronic back pain. Denies trauma. Denies paresthesia. Denies urinary bowel incontinence or retention. Denies IV drug use. Patient reports he was at work but he was not lifting anything heavy when he bent over and felt a sharp pain. Patient reports now has pain with movement. Patient is under the care of [facility] has an appointment tomorrow morning. He was treated with Toradol Flexeril provided with a prescription of Flexeril. X-ray was done as a request of . X-ray negative - Vital Signs Vital signs: Temp Pulse Resp BP Pulse Ox 98.3 F 67 20 132/67 H 97 02/16/19 07:50 02/16/19 07:50 02/16/19 07:50 02/16/19 07:50 02/16/19 07:50 - Diagnostic Test Radiology reviewed: Image reviewed, Reports reviewed Discharge - Discharge Clinical Impression: Low back pain Qualifiers: Chronicity: acute Back pain laterality: left Sciatica presence: without sciatica Qualified Code(s): M54.5 - Low back pain Condition: Stable Disposition: HOME, SELF-CARE Instructions: Ice Packs ([facility]), Low Back Pain ([facility]), Muscle Relaxers ([facility]), Toradol Injection ([facility]) Additional Instructions: *You have been evaluated for back pain *Take medication as prescribed *Rest/Ice packs to the area *Follow up with pain management tomorrow *Return to ED for worsening condition, changes, needs Monitor your blood pressure. Your blood pressure was elevated today. This may be because you were anxious, in pain or because you need medication. It is important to follow up with your primary care provider for full evaluation. Prescriptions: Cyclobenzaprine HCl [Flexeril 10 Mg Tablet] 10 mg PO TID #15 tablet Forms: Elevated Blood Pressure, Return to Work
[2019-02-16 10:00] VITALS: BP 133/72
== END 2019-02-16 10:05 | disposition home or self-care (01) ==
LOC: ER 07:44
DX: M54.5 Low back pain (principal); G89.29 Other chronic pain; Z79.891 Long term (current) use of opiate analgesic; F17.210 Nicotine dependence, cigarettes, uncomplicated
CPT/HCPCS: 99283; 96372; 72110; J1885

== ENCOUNTER 2019-02-23 10:13 | Emergency (ER) | payer BC ==
--- NOTE | 2019-02-23 10:59 | ER Document Report ---
ED General - General Chief Complaint: General Weakness Stated Complaint: GENERAL WEAKNESS Time Seen by Provider: 02/23/19 10:46 Mode of Arrival: Ambulatory Information source: Patient Notes: This 38-year-old male presents emergency department with complaints of weakness for the past few days. Denies fever vomiting diarrhea. Reports some nausea reports some right-sided chest pain when he coughs. Reports he is not coughing that much. Patient reports he works outside but has been drinking Gatorade to stay hydrated. Patient is alert and oriented no distress answers all questions appropriately. Patient denies pain TRAVEL OUTSIDE OF THE U.S. IN LAST 30 DAYS: No COUNTRY TRAVELED TO/FROM: [place] - [facility] Onset: Other Onset/Duration: Persistent Quality of pain: No pain Pain Level: Denies Associated symptoms: Nausea Exacerbated by: Denies Relieved by: Denies Similar symptoms previously: No Recently seen / treated by doctor: No - Related Data Allergies/Adverse Reactions: No Known Allergies Allergy (Verified 02/23/19 10:44) Past Medical History - General Information source: Patient - Social History Smoking Status: Current Every Day Smoker Chew tobacco use (# tins/day): No Frequency of alcohol use: None Drug Abuse: None 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, 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 Lives with: Family Family History: Reviewed & Not Pertinent, CAD Patient has suicidal ideation: No Patient has homicidal ideation: No - Past Medical History Cardiac Medical History: Reports: Hx Hypercholesterolemia Neurological Medical History: Reports: Hx Migraine Renal/ Medical History: Denies: Hx Peritoneal Dialysis Musculoskeletal Medical History: Reports Hx Arthritis - BACK Past Surgical History: Reports: Hx Orthopedic Surgery - right hip and shoulder - Immunizations Hx Diphtheria, Pertussis, Tetanus Vaccination: Yes - UTD Review of Systems - Review of Systems Notes: Review HPI for review of systems., All other systems negative Physical Exam - Vital signs Vitals: Temp Pulse Resp BP Pulse Ox 98.5 F 98 14 113/78 94 02/23/19 10:18 02/23/19 10:18 02/23/19 10:18 02/23/19 10:18 02/23/19 10:18 - General General appearance: Appears well, Alert In distress: None - HEENT Head: Normocephalic, Atraumatic Eyes: Normal Conjunctiva: Normal Pupils: PERRL Ears: Normal External canal: Normal Tympanic membrane: Normal Nasal: Normal Mouth/Lips: Normal Mucous membranes: Moist Pharynx: Normal Neck: Normal, Supple. No: Lymphadenopathy - Respiratory Respiratory status: No respiratory distress Chest status: Nontender Breath sounds: Normal Chest palpation: Normal - Cardiovascular Rhythm: Regular Heart sounds: Normal auscultation Murmur: No - Abdominal Inspection: Normal Distension: No distension Tenderness: Nontender - Back Back: Normal - Extremities General upper extremity: Normal ROM, Normal strength General lower extremity: Normal ROM, Normal strength - Neurological Neuro grossly intact: Yes Cognition: Normal Orientation: AAOx4 Coleman Coma Scale Eye Opening: Spontaneous Coleman Coma Scale Verbal: Oriented [place] Coma Scale Motor: Obeys Commands Coleman Coma Scale Total: 15 Speech: Normal Motor strength normal: LUE, RUE, LLE, RLE 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 Denies all other symptoms to include fever vomiting shortness of breath chest pain diarrhea. Reports some nausea. Works outside but reports he has been staying hydrated drinking Gatorade. Will do basic labs and EKG. - Vital Signs Vital signs: Temp Pulse Resp BP Pulse Ox 98.5 F 98 14 113/78 94 02/23/19 10:18 02/23/19 10:18 02/23/19 10:18 02/23/19 10:18 02/23/19 10:18 Discharge - Discharge Clinical Impression: Weakness Condition: Stable Disposition: HOME, SELF-CARE Instructions: Weakness ([facility]) Additional Instructions: *You have been evaluated for weakness *Stay hydrated *Follow up with a primary care provider within one week for full physical *Return to ED for worsening condition, changes, needs *Return to ED if not better in 24 hours
[2019-02-23] MEDS ORDERED: ONDANSETRON 4 MG TAB.RAPDIS PO ONE (11:09)
[2019-02-23 11:16] LABS: ABSOLUTE BASOPHILS # (AUTO) 0.1 10^3/uL (0.0-0.2); ABSOLUTE EOSINOPHILS # (AUTO) 0.1 10^3/uL (0.0-0.6); ABSOLUTE LYMPHOCYTES (AUTO) 2.2 10^3/uL (0.5-4.7); ABSOLUTE MONOCYTES (AUTO) 0.9 10^3/uL (0.1-1.4); ABSOLUTE NEUT (AUTO) 3.3 10^3/uL (1.7-8.2); HEMATOCRIT 47.7 % (37.9-51.0); HEMOGLOBIN 16.4 g/dL (13.5-17.0); MEAN CORPUSCULAR HEMOGLOBIN 31.4 pg (27.0-33.4); MEAN CORPUSCULAR HGB CONC 34.5 g/dL (32.0-36.0); MEAN CORPUSCULAR VOLUME 91 fl (80-97); MONOCYTES % (AUTO) 14.1 % (3-13); PLATELET COUNT 349 10^3/uL (150-450); RED BLOOD COUNT 5.23 10^6/uL (4.35-5.55); RED CELL DISTRIBUTION WIDTH 13.8 % (11.5-14.0); SEGMENTED NEUTROPHILS % (AUTO) 49.9 % (42-78); TOTAL CELLS COUNTED % (AUTO) 100 %; WHITE BLOOD COUNT 6.6 10^3/uL (4.0-10.5)
[2019-02-23 11:18] LABS: AMORPHOUS SEDIMENT,URINE TRACE /HPF; APPEARANCE,URINE CLOUDY; BILIRUBIN,URINE NEGATIVE (NEGATIVE); COLOR,URINE YELLOW; GLUCOSE, URINE NEGATIVE (NEGATIVE); KETONES,URINE NEGATIVE (NEGATIVE); LEUKOCYTE ESTERASE,URINE NEGATIVE (NEGATIVE); NITRITE,URINE NEGATIVE (NEGATIVE); PROTEIN,URINE 30 mg/dL (NEGATIVE); URINE SPECIFIC GRAVITY 1.025; UROBILINOGEN,URINE NEGATIVE mg/dL (<2.0)
[2019-02-23 11:34] LABS: ALBUMIN 5.4 g/dL (3.5-5.0); ALKALINE PHOSPHATASE 94 U/L (38-126); ANION GAP 14 (5-19); ASPARTATE AMINO TRANSFERASE 24 U/L (17-59); BILIRUBIN,DIRECT 0.4 mg/dL (0.0-0.4); BILIRUBIN,TOTAL 0.9 mg/dL (0.2-1.3); BLOOD UREA NITROGEN 38 mg/dL (7-20); CALCIUM 10.5 mg/dL (8.4-10.2); CARBON DIOXIDE 25 mmol/L (22-30); CHLORIDE 99 mmol/L (98-107); GLUCOSE 111 mg/dL (75-110); POTASSIUM 4.4 mmol/L (3.6-5.0); TOTAL PROTEIN 8.6 g/dL (6.3-8.2)
[2019-02-23] MEDS ORDERED: NORMAL SALINE 1000 ML 1,000 ML IV ONE ×3 (11:45→14:58)
--- NOTE | 2019-02-23 11:46 | ER Document Report ---
ED Medical Screen (RME) - General Chief Complaint: General Weakness Stated Complaint: GENERAL WEAKNESS Time Seen by Provider: 02/23/19 10:46 Primary Care Provider: [facility] [Provider Group] - Follow up as needed Mode of Arrival: Ambulatory Notes: This 38-year-old male presents emergency department with complaints of weakness for the past few days. Denies fever vomiting diarrhea. Reports some nausea reports some right-sided chest pain when he coughs. Reports he is not coughing that much. Patient reports he works outside but has been drinking Gatorade to stay hydrated. Patient is alert and oriented no distress answers all questions appropriately. Patient denies pain I have greeted and performed a rapid initial assessment of this patient. A comprehensive ED assessment and evaluation of the patient, analysis of test results and completion of the medical decision making process will be conducted by additional ED providers. Dictation of this chart was performed using voice recognition software; therefore, there may be some unintended grammatical errors. TRAVEL OUTSIDE OF THE U.S. IN LAST 30 DAYS: No COUNTRY TRAVELED TO/FROM: [place] - Related Data Allergies/Adverse Reactions: No Known Allergies Allergy (Verified 02/23/19 10:44) Past Medical History - Social History Chew tobacco use (# tins/day): No Frequency of alcohol use: None Drug Abuse: None - Past Medical History Cardiac Medical History: Reports: Hx Hypercholesterolemia Neurological Medical History: Reports: Hx Migraine Renal/ Medical History: Denies: Hx Peritoneal Dialysis Musculoskeltal Medical History: Reports Hx Arthritis - BACK Past Surgical History: Reports: Hx Orthopedic Surgery - right hip and shoulder - Immunizations Hx Diphtheria, Pertussis, Tetanus Vaccination: Yes - UTD Physical Exam - Vital signs Vitals: Temp Pulse Resp BP Pulse Ox 98.5 F 98 14 113/78 94 02/23/19 10:18 02/23/19 10:18 02/23/19 10:18 02/23/19 10:18 02/23/19 10:18 Course - Vital Signs Vital signs: Temp Pulse Resp BP Pulse Ox 98.6 F 88 17 120/81 98 02/23/19 19:09 02/23/19 19:09 02/23/19 19:09 02/23/19 19:09 02/23/19 19:09 - Laboratory Result Diagrams: 02/23/19 11:10 02/23/19 17:21 Laboratory results interpreted by me: 02/23/19 02/23/19 02/23/19 11:10 11:10 11:10 Monocytes % 14.1 H BUN 38 H Creatinine 2.04 H Est GFR ( Amer) 44 L Est GFR (Non-Af Amer) 36 L Glucose 111 H Calcium 10.5 H Magnesium 2.7 H Creatine Kinase Total Protein 8.6 H Albumin 5.4 H Urine Protein 30 H Urine Blood SMALL H Urine Ascorbic Acid 40 H 02/23/19 02/23/19 11:10 17:21 Monocytes % BUN 32 H Creatinine Est GFR ( Amer) Est GFR (Non-Af Amer) Glucose Calcium Magnesium Creatine Kinase 281 H Total Protein Albumin Urine Protein Urine Blood Urine Ascorbic Acid Doctor's Discharge - Discharge Clinical Impression: Heat exhaustion, Acute kidney injury, Cough Condition: Stable Disposition: HOME, SELF-CARE Instructions: Heat Exhaustion ([facility]) Additional Instructions: FOLLOW UP WITH THE PRIMARY CARE LISTED BELOW. PLEASE HAVE REPEAT XR IN 6 WEEKS. COMPLETE Z DAMEON. PUSH FLUIDS, STAY IN THE COOL AIR. RETURN IF WORSE. Prescriptions: Azithromycin [Zithromax 250 mg Tablet] 250 mg PO ASDIR PRN #6 tablet PRN Reason: Ondansetron [Zofran Odt 4 mg Tablet] 1 - 2 tab PO Q4H PRN #15 tab.rapdis PRN Reason: For Nausea/Vomiting Forms: Return to Work Referrals: [facility] [Provider Group] - Follow up as needed
--- NOTE | 2019-02-23 12:18 | EKG REPORT ---
SEVERITY:- BORDERLINE ECG - SINUS RHYTHM BORDERLINE T ABNORMALITIES, ANT-LAT LEADS : Confirmed by: Ronal Hernandes MD 23-Feb-2019 12:17:26
--- NOTE | 2019-02-23 12:23 | RADIOLOGY REPORT (SQ) ---
EXAM DESCRIPTION: CHEST 2 VIEWS COMPLETED DATE/TIME: 02/23/2019 12:05 pm REASON FOR STUDY: cough COMPARISON: 09/23/2014 EXAM PARAMETERS: NUMBER OF VIEWS: two views TECHNIQUE: Digital Frontal and Lateral radiographic views of the chest acquired. RADIATION DOSE: NA LIMITATIONS: none FINDINGS: LUNGS AND PLEURA: Subtle heterogeneous opacity of the left lung base. MEDIASTINUM AND HILAR STRUCTURES: No masses or contour abnormalities. HEART AND VASCULAR STRUCTURES: Heart normal size. No evidence for failure. BONES: No acute findings. HARDWARE: None in the chest. OTHER: No other significant finding. IMPRESSION: Subtle heterogeneous opacity of the left lung base, suspicious for infection. Recommend follow-up radiographs in 6 to 8 weeks to document stability or resolution. TECHNICAL DOCUMENTATION: JOB ID: [id number] [employer]- All Rights Reserved Reading location - IP/workstation name: [email or web address]
--- NOTE | 2019-02-23 15:07 | ER Document Report ---
ED General - General Chief Complaint: General Weakness Stated Complaint: GENERAL WEAKNESS Time Seen by Provider: 02/23/19 10:46 Primary Care Provider: [facility] [Provider Group] - Follow up as needed Mode of Arrival: Ambulatory TRAVEL OUTSIDE OF THE U.S. IN LAST 30 DAYS: No COUNTRY TRAVELED TO/FROM: [facility] Notes: 38-year-old male to the emergency department with history of tobacco use disorder with complaints of generalized weakness, dizziness, lightheadedness, nausea and vomiting and profuse sweating in the past 2 days. 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 He states that he has been trying to hydrate and drinking about 6 Gatorade's a day but he is still feeling poorly. He states he was vomiting on Thursday after work and felt nauseated all day yesterday. He states that he has not had a syncopal event. He admits to a little bit of shortness of breath but denies any chest pain. He denies any past medical history other than tobacco use. - Related Data Allergies/Adverse Reactions: No Known Allergies Allergy (Verified 02/23/19 10:44) Past Medical History - General Information source: Patient - Social History Smoking Status: Current Every Day Smoker Chew tobacco use (# tins/day): No Frequency of alcohol use: None Drug Abuse: None Family History: Reviewed & Not Pertinent, CAD Patient has suicidal ideation: No Patient has homicidal ideation: No - Past Medical History Cardiac Medical History: Reports: Hx Hypercholesterolemia Neurological Medical History: Reports: Hx Migraine Renal/ Medical History: Denies: Hx Peritoneal Dialysis Musculoskeletal Medical History: Reports Hx Arthritis - BACK Past Surgical History: Reports: Hx Orthopedic Surgery - right hip and shoulder - Immunizations Hx Diphtheria, Pertussis, Tetanus Vaccination: Yes - UTD Review of Systems - Review of Systems Constitutional: Malaise, Weakness. denies: Chills, Fever EENT: No symptoms reported Cardiovascular: Dizziness, Lightheaded. denies: Chest pain, Palpitations, Syncope Respiratory: Cough, Short of breath Gastrointestinal: Nausea, Vomiting. denies: Abdominal pain, Diarrhea Genitourinary: denies: Frequency, Flank pain, Hematuria, Incontinence Musculoskeletal: No symptoms reported Skin: No symptoms reported Neurological/Psychological: denies: Headaches -: Yes All other systems reviewed and negative Physical Exam - Vital signs Vitals: Temp Pulse Resp BP Pulse Ox 98.5 F 98 14 113/78 94 02/23/19 10:18 02/23/19 10:18 02/23/19 10:18 02/23/19 10:18 02/23/19 10:18 Interpretation: Normal - General General appearance: Alert In distress: None - Noted some burn to the neck and upper chest. - HEENT Head: Normocephalic, Atraumatic Eyes: Normal Pupils: PERRL Ears: Normal External canal: Normal Tympanic membrane: Normal Sinus: Normal Nasal: Normal Mouth/Lips: Normal Mucous membranes: Dry Pharynx: Normal Neck: Normal - Respiratory Respiratory status: No respiratory distress Chest status: Nontender Breath sounds: Normal Chest palpation: Normal - Cardiovascular Rhythm: Regular Heart sounds: Normal auscultation Murmur: No - Abdominal Inspection: Normal Distension: No distension Bowel sounds: Normal Tenderness: Nontender Organomegaly: No organomegaly - Extremities General upper extremity: Normal inspection, Nontender, Normal ROM General lower extremity: Normal inspection, Nontender, Normal ROM - Neurological Neuro grossly intact: Yes Cognition: Normal Orientation: AAOx4 Coleman Coma Scale Eye Opening: Spontaneous Coleman Coma Scale Verbal: Oriented Coleman Coma Scale Motor: Obeys Commands Coleman Coma Scale Total: 15 Speech: Normal Cranial nerves: Normal. No: Facial palsy, Forehead sparing, Gaze palsy, Sensory deficit, Tongue deviation Cerebellar coordination: Normal, Heel-john - Normal [id number] bilaterally. 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 No: Pronator drift Sensory: Normal - Psychological Associated symptoms: Normal mood, Flat affect - Skin Skin Temperature: Warm Skin Moisture: Dry Skin Color: Normal Course - Re-evaluation Re-evalutation: 02/23/19 Rounded on patient and he is doing much better. He is drinking Gatorade at bedside. We repeated his basic metabolic panel. It is improved greatly. His acute kidney injury has gotten much better. Patient is not feeling nauseated or weak any longer. Noted chest x-ray reading. Patient says he has had a slight cough over the past couple of days. He has no leukocytosis, no left shift, no hypoxia, no fever. Will cross cover with azithromycin and have advised him to get a repeat chest x-ray in 6 weeks. Have also advised to stay out of the heat. I have encouraged him to push fluids. Encouraged him to return if he has any worsening symptoms such as chest pain, passing out, intractable vomiting, or any other complaints. Impression: Heat exhaustion, acute kidney injury, nausea vomiting, cough. We will plan to follow the treatment plan as listed above. Encourage patient to return if he has any worsening symptoms. He and his significant other who is bedside agree with the plan. - Vital Signs Vital signs: Temp Pulse Resp BP Pulse Ox 98.6 F 88 17 120/81 98 02/23/19 19:09 02/23/19 19:09 02/23/19 19:09 02/23/19 19:09 02/23/19 19:09 - Laboratory Result Diagrams: 02/23/19 11:10 02/23/19 17:21 Laboratory results interpreted by me: 02/23/19 02/23/19 02/23/19 11:10 11:10 11:10 Monocytes % 14.1 H BUN 38 H Creatinine 2.04 H Est GFR ( Amer) 44 L Est GFR (Non-Af Amer) 36 L Glucose 111 H Calcium 10.5 H Magnesium 2.7 H Creatine Kinase Total Protein 8.6 H Albumin 5.4 H Urine Protein 30 H Urine Blood SMALL H Urine Ascorbic Acid 40 H 02/23/19 02/23/19 11:10 17:21 Monocytes % BUN 32 H Creatinine Est GFR ( Amer) Est GFR (Non-Af Amer) Glucose Calcium Magnesium Creatine Kinase 281 H Total Protein Albumin Urine Protein Urine Blood Urine Ascorbic Acid - Diagnostic Test Radiology reviewed: Image reviewed, Reports reviewed - EKG Interpretation by Me EKG shows normal: Sinus rhythm Rate: Normal Rhythm: NSR - No STEMI, T wave inversion in V2 which is new compared to prior. No other significant changes. When compared to previous EKG there are: No significant change Discharge - Discharge Clinical Impression: Acute kidney injury, Cough Heat exhaustion Qualifiers: Encounter type: initial encounter Qualified Code(s): T67.5XXA - Heat exhaustion, unspecified, initial encounter Condition: Stable Disposition: HOME, SELF-CARE Instructions: Heat Exhaustion ([facility]) Additional Instructions: FOLLOW UP WITH THE PRIMARY CARE LISTED BELOW. PLEASE HAVE REPEAT XR IN 6 WEEKS. COMPLETE Z DAMEON. PUSH FLUIDS, STAY IN THE COOL AIR. RETURN IF WORSE. Prescriptions: Azithromycin [Zithromax 250 mg Tablet] 250 mg PO ASDIR PRN #6 tablet PRN Reason: Ondansetron [Zofran Odt 4 mg Tablet] 1 - 2 tab PO Q4H PRN #15 tab.rapdis PRN Reason: For Nausea/Vomiting Forms: Return to Work Referrals: [facility] [Provider Group] - Follow up as needed
[2019-02-23 18:00] LABS: ANION GAP 6 (5-19); BLOOD UREA NITROGEN 32 mg/dL (7-20); CALCIUM 8.8 mg/dL (8.4-10.2); CARBON DIOXIDE 27 mmol/L (22-30); CHLORIDE 105 mmol/L (98-107); GLUCOSE 108 mg/dL (75-110)
[2019-02-23 19:10] VITALS: BP 120/81
== END 2019-02-23 19:10 | disposition home or self-care (01) ==
LOC: ER 10:13
DX: T67.5XXA Heat exhaustion, unspecified, initial encounter (principal); R53.1 Weakness; R42 Dizziness and giddiness; R11.2 Nausea with vomiting, unspecified; F17.200 Nicotine dependence, unspecified, uncomplicated; N17.9 Acute kidney failure, unspecified; X58.XXXA Exposure to other specified factors, initial encounter; Y93.H3 Activity, building and construction
CPT/HCPCS: 93005; 36415; 82550; 83735; 85025; 80053; 81001; 71046; 93010; S0119; J7030; 96360; 96361; 99284

== ENCOUNTER → 2019-08-17 | Outpatient (CLI) | payer BC ==
--- NOTE | 2019-08-17 16:51 | RADIOLOGY REPORT (SQ) ---
EXAM DESCRIPTION: MRI LUMBAR SPINE WITHOUT COMPLETED DATE/TIME: 08/17/2019 3:40 pm REASON FOR STUDY: M54.5 LOW BACK PAIN M54.5 LOW BACK PAIN COMPARISON: 08/25/2016 TECHNIQUE: Sagittal and Axial imaging includes T1, T2, STIR and gradient echo sequences. Coronal T2/ HASTE imaging. LIMITATIONS: None. FINDINGS: VISUALIZED UPPER ABDOMEN: Limited evaluation. No acute or suspicious findings suggested. SEGMENTATION: No transitional anatomy. The lowest well-developed disc space is labeled L5-S1. ALIGNMENT: Anatomic. VERTEBRAE: Intact. BONE MARROW: Normal. No marrow replacement or reactive changes. DISC SIGNAL: Desiccation L5-S1. POSTERIOR ELEMENTS: Generally intact. No pars defect evident. HARDWARE: None in the spine. CORD AND CONUS: Normal in size and signal intensity. Conus at the appropriate level. SOFT TISSUES: No aortic aneurysm seen. No bulky retroperitoneal adenopathy or mass. No paraspinal mas s or fluid. L1-L2: No significant spinal stenosis or exit foraminal stenosis. L2-L3: No significant spinal stenosis or exit foraminal stenosis. L3-L4: No significant spinal stenosis or exit foraminal stenosis. L4-L5: No significant spinal stenosis or exit foraminal stenosis. L5-S1: Ventral impression on the thecal sac due to broad-based central and downward disc protrusion. LOWER THORACIC: Incompletely imaged. Bulging disc T11-12. SACRUM: Visualized upper sacrum intact. OTHER: No other significant findings. IMPRESSION: Chronic small disc herniation L5-S 1. No significant change. TECHNICAL DOCUMENTATION: JOB ID: [id number] [employer]- All Rights Reserved Reading location - IP/workstation name: [email or web address]
== END ==
LOC: RAD 14:58
PROVIDERS: ATTEND Physician Assistant
DX: M51.27 Other intervertebral disc displacement, lumbosacral region (principal)
CPT/HCPCS: 72148

== ENCOUNTER 2019-10-17 00:31 | Emergency (ER) | payer BC ==
[2019-10-17 00:38] VITALS: BP 134/81
[2019-10-17] MEDS ORDERED: KETOROLAC TROMETHAMINE INJ/PF 30 MG/1 ML SDV IV ONE (01:00)
[2019-10-17] MEDS ORDERED: PROCHLORPERAZINE EDISYLATE INJ 10 MG/2 ML VIAL IV ONE (01:00)
[2019-10-17] MEDS ORDERED: DIPHENHYDRAMINE HCL 50 MG/ML VIAL IV ONE (01:00)
--- NOTE | 2019-10-17 01:00 | ER Document Report ---
ED Medical Screen (RME) - General Chief Complaint: Headache Stated Complaint: HEAD PAIN Time Seen by Provider: 10/17/19 00:57 Primary Care Provider: DARRYL BUNCH PA [Primary Care Provider] - Follow up as needed Mode of Arrival: Ambulatory Information source: Patient Notes: Patient is a 39-year-old male with history of migraines presenting to the emergency department chief complaint of headache. Patient reports headache over the last 2 days worsening tonight. Patient reports headache feels similar to migraines but worse. He states he took Fioricet at home without relief. Patient appears to be in moderate distress. His vitals are stable. I have greeted and performed a rapid initial assessment of this patient. A comprehensive ED assessment and evaluation of the patient, analysis of test results and completion of the medical decision making process will be conducted by additional ED providers. I have specifically instructed the patient or family members with the patient to immediately return to any nursing staff should anything change in the patient's condition or with their chief complaint. TRAVEL OUTSIDE OF THE [place] IN LAST 30 DAYS: No - Related Data Allergies/Adverse Reactions: No Known Allergies Allergy (Verified 07/06/19 12:19) Past Medical History - Social History Chew tobacco use (# tins/day): No Frequency of alcohol use: None Drug Abuse: None - Past Medical History Cardiac Medical History: Reports: Hx Hypercholesterolemia Neurological Medical History: Reports: Hx Migraine Renal/ Medical History: Denies: Hx Peritoneal Dialysis Musculoskeltal Medical History: Reports Hx Arthritis - BACK Past Surgical History: Reports: Hx Orthopedic Surgery - right hip and shoulder - Immunizations Hx Diphtheria, Pertussis, Tetanus Vaccination: Yes - UTD Physical Exam - Vital signs Vitals: Temp Pulse Resp BP Pulse Ox 98.2 F 78 20 134/81 H 96 10/17/19 00:35 10/17/19 00:35 10/17/19 00:35 10/17/19 00:35 10/17/19 00:35 Course - Vital Signs Vital signs: Temp Pulse Resp BP Pulse Ox 98.2 F 78 20 134/81 H 96 10/17/19 00:35 10/17/19 00:35 10/17/19 00:35 10/17/19 00:35 10/17/19 00:35 Doctor's Discharge - Discharge Referrals: MCNEESE,DARRYL, PA [Primary Care Provider] - Follow up as needed
[2019-10-17] MEDS ORDERED: NORMAL SALINE 1000 ML 1,000 ML IV ONE (01:01)
--- NOTE | 2019-10-17 01:44 | ER Document Report ---
HPI - HPI Time Seen by Provider: 10/17/19 00:57 Pain Level: 5 Notes: Patient is a 39-year-old male with history of migraines presenting to the emergency department chief complaint of headache. Patient reports headache over the last 2 days worsening tonight. Patient reports headache feels similar to migraines but worse. He states he took Fioricet at home without relief. Patient appears to be in moderate distress. His vitals are stable. - REPRODUCTIVE Reproductive: DENIES: : Past Medical History - General Information source: Patient - Social History Smoking Status: Current Every Day Smoker Chew tobacco use (# tins/day): No Frequency of alcohol use: None Drug Abuse: None Family History: Reviewed & Not Pertinent, CAD Patient has suicidal ideation: No Patient has homicidal ideation: No - Past Medical History Cardiac Medical History: Reports: Hx Hypercholesterolemia Neurological Medical History: Reports: Hx Migraine Renal/ Medical History: Denies: Hx Peritoneal Dialysis Musculoskeletal Medical History: Reports Hx Arthritis - BACK Past Surgical History: Reports: Hx Orthopedic Surgery - right hip and shoulder - Immunizations Hx Diphtheria, Pertussis, Tetanus Vaccination: Yes - UTD Vertical Provider Document - CONSTITUTIONAL Notes: PHYSICAL EXAMINATION: GENERAL: Well-appearing, well-nourished and in no acute distress. HEAD: Atraumatic, normocephalic. EYES: Pupils equal round and reactive to light, extraocular movements intact, sclera anicteric, conjunctiva are normal. ENT: Nares patent, oropharynx clear without exudates. Moist mucous membranes. NECK: Normal range of motion, supple without lymphadenopathy LUNGS: Breath sounds clear to auscultation bilaterally and equal. No wheezes rales or rhonchi. HEART: Regular rate and rhythm without murmurs ABDOMEN: Soft, nontender, nondistended abdomen. No guarding, no rebound. No masses appreciated. Musculoskeletal: Normal range of motion, no pitting or edema. No cyanosis. NEUROLOGICAL: Cranial nerves grossly intact. Normal speech, normal gait. Normal sensory, motor exams PSYCH: Normal mood, normal affect. SKIN: Warm, Dry, normal turgor, no rashes or lesions noted. - INFECTION CONTROL TRAVEL OUTSIDE OF THE [place] IN LAST 30 DAYS: No Course - Re-evaluation Re-evalutation: Patient appears well, nontoxic, migraine has resolved after administration of medications in the triage area. Patient will be discharged home at this time. - Vital Signs Vital signs: Temp Pulse Resp BP Pulse Ox 98.2 F 78 20 134/81 H 96 10/17/19 00:35 10/17/19 00:35 10/17/19 00:35 10/17/19 00:35 10/17/19 00:35 Discharge - Discharge Clinical Impression: Migraine Qualifiers: Migraine type: unspecified Status migrainosus presence: without status migrainosus Intractability: not intractable Qualified Code(s): G43.909 - Migraine, unspecified, not intractable, without status migrainosus Condition: Stable Disposition: HOME, SELF-CARE Additional Instructions: You were seen today for a migraine headache. Please follow-up with your primary care doctor regarding today's ED visit. Return to emergency department immediately if you develop a headache that gets to its maximum severity within 20 minutes of onset, you pass out, you develop weakness, numbness, changes in your vision, become unable to keep any fluids down for more than 12 hours, or develop a fever greater than 100.4 degrees Fahrenheit. If you develop a similar migraine headache in the future I recommend that you immediately take 600 mg of ibuprofen and 50 mg of Benadryl and go to sleep as quickly as possible. This can often prevent your migraine headache from becoming severe. If this does not work please proceed to taking 1 or 2 tablets of the Fioricet as prescribed. Prescriptions: Butalb/Acetaminophen/Caffeine [Fioricet (50-325-40 mg) Tablet] 1 tab PO Q4HP PRN #30 tab PRN Reason: Referrals: DARRYL BUNCH PA [Primary Care Provider] - Follow up as needed
== END 2019-10-17 02:00 | disposition home or self-care (01) ==
LOC: ER 00:31
DX: G43.909 Migraine, unspecified, not intractable, without status migrainosus (principal); F17.200 Nicotine dependence, unspecified, uncomplicated; E78.00 Pure hypercholesterolemia, unspecified
CPT/HCPCS: 99283; 96361; 96374; 96375; J1200; J1885; J0780; J7030

== ENCOUNTER 2019-11-08 12:58 | Emergency (ER) | payer BC ==
--- NOTE | 2019-11-08 14:03 | ER Document Report ---
HPI - HPI Time Seen by Provider: 11/08/19 13:12 Pain Level: 3 Context: Patient is a 39-year-old male who presents to the emergency department with a chief complaint of a sinus headache. Patient states that his headache is in the left frontal area of his head. He took ibuprofen, Flonase, and Mucinex to help, but his symptoms did not get any better. Patient states that the mucus that he is able to get out has a poor odor. - NEURO Neurology: REPORTS: Headache - CARDIOVASCULAR Cardiovascular: DENIES: Chest pain - RESPIRATORY Respiratory: DENIES: Trouble Breathing, Coughing - REPRODUCTIVE Reproductive: DENIES: : - MUSCULOSKELETAL Musculoskeletal: DENIES: Extremity pain - DERM Skin Color: Normal Skin Problems: None Past Medical History - General Information source: Patient - Social History Smoking Status: Unknown if Ever Smoked Family History: Reviewed & Not Pertinent, CAD Patient has suicidal ideation: No Patient has homicidal ideation: No - Past Medical History Cardiac Medical History: Reports: Hx Hypercholesterolemia Neurological Medical History: Reports: Hx Migraine Renal/ Medical History: Denies: Hx Peritoneal Dialysis Musculoskeletal Medical History: Reports Hx Arthritis - BACK Past Surgical History: Reports: Hx Orthopedic Surgery - right hip and shoulder - Immunizations Hx Diphtheria, Pertussis, Tetanus Vaccination: Yes - UTD Vertical Provider Document - CONSTITUTIONAL Agree With Documented VS: Yes Exam Limitations: No Limitations General Appearance: No Apparent Distress - INFECTION CONTROL TRAVEL OUTSIDE OF THE [place] IN LAST 30 DAYS: No - HEENT HEENT: Atraumatic, Normocephalic, PERRLA. negative: Conjuctival Injection, Dental Injury, Pharyngeal Exudate, Pharyngeal Tenderness, Pharyngeal Erythema, Tympanic Membrane Red, Tympanic Membrane Bulging Notes: tenderness to left frontal sinus. - NECK Neck: Normal Inspection, Supple. negative: Lymphadenopathy-Left, Lymphadenopathy-Right - RESPIRATORY Respiratory: Breath Sounds Normal, No Respiratory Distress - CARDIOVASCULAR Cardiovascular: Regular Rate, Regular Rhythm Pulses: Normal: Radial - MUSCULOSKELETAL/EXTREMETIES Musculoskeletal/Extremeties: FROM - NEURO Level of Consciousness: Awake, Alert, Appropriate Motor/Sensory: No Motor Deficit, No Sensory Deficit - DERM Integumentary: Warm, Dry, No Rash Course - Re-evaluation Re-evalutation: 11/08/19 Patient's physical exam is consistent with sinus headache. Patient will be started on cetirizine. Due to the COVID-19 pandemic, the patient will be written a prescription for Augmentin, as it is difficult to establish a primary care provider visit. This will be dated from 5 days from now and the patient will fill this prescription if he continues to have symptoms. He is in agreement with this plan. I have a very low suspicion for peritonsillar abscess, this patient's uvula is midline. Airway is patent. Follow-up precaut ions were given. Verbal discharge instructions were given to the patient. They verbalized understanding. They are stable for discharge. - Vital Signs Vital signs: Temp Pulse Resp BP Pulse Ox 98.5 F 92 18 137/81 H 99 11/08/19 13:00 11/08/19 13:00 11/08/19 13:00 11/08/19 13:00 11/08/19 13:00 Discharge - Discharge Clinical Impression: Sinus headache Condition: Stable Disposition: HOME, SELF-CARE Additional Instructions: You are seen today in the emergency department for sinus headache. Please continue your Flonase and add cetirizine. If your symptoms are not better in the next 4 days, get the antibiotic filled. Follow-up with your primary care provider in regards to this visit. For your headache, take 50 mg of Benadryl and 600 mg of ibuprofen and go to sleep. Prescriptions: Cetirizine HCl [All Day Allergy] 10 mg PO DAILY #30 tablet Amoxicillin/Potassium Clav [Augmentin 875-125 Tablet] 1 tab PO BID #20 tab Forms: Return to Work
[2019-11-08 14:14] VITALS: BP 119/80
== END 2019-11-08 14:12 | disposition home or self-care (01) ==
LOC: ER 12:58
DX: R51 Headache (principal); Z86.69 Personal history of other diseases of the nervous system and sense organs
CPT/HCPCS: 99283

== ENCOUNTER 2020-02-22 20:44 | Emergency (ER) | payer BC ==
[2020-02-22 22:52] LABS: ABSOLUTE EOSINOPHILS # (AUTO) 0.1 10^3/uL (0.0-0.6); ABSOLUTE MONOCYTES (AUTO) 0.8 10^3/uL (0.1-1.4); ABSOLUTE NEUT (AUTO) 4.9 10^3/uL (1.7-8.2); BASOPHILS % (AUTO) 0.4 % (0-2); EOSINOPHILS % (AUTO) 1.5 % (0-6); HEMATOCRIT 41.3 % (37.9-51.0); HEMOGLOBIN 14.2 g/dL (13.5-17.0); LYMPHOCYTES % (AUTO) 33.8 % (13-45); MEAN CORPUSCULAR HEMOGLOBIN 31.5 pg (27.0-33.4); MEAN CORPUSCULAR HGB CONC 34.5 g/dL (32.0-36.0); MEAN CORPUSCULAR VOLUME 91 fl (80-97); MONOCYTES % (AUTO) 8.9 % (3-13); PLATELET COUNT 322 10^3/uL (150-450); RED BLOOD COUNT 4.53 10^6/uL (4.35-5.55); RED CELL DISTRIBUTION WIDTH 13.9 % (11.5-14.0); SEGMENTED NEUTROPHILS % (AUTO) 55.4 % (42-78); TOTAL CELLS COUNTED % (AUTO) 100 %; WHITE BLOOD COUNT 8.8 10^3/uL (4.0-10.5)
--- NOTE | 2020-02-22 23:01 | ER Document Report ---
ED General - General Chief Complaint: Shortness Of Breath Stated Complaint: SHORTNESS OF BREATH Time Seen by Provider: 02/22/20 22:18 Notes: Patient is a 39-year-old male that comes emergency department for generally feeling unwell for the past 2 days. He states that he has had intermittent shortness of breath, lightheadedness, mild cough, and nausea. He denies abdominal pain, chest pain, flank pain, headache, sore throat. He states he is still able to eat and drink without difficulty. He denies any obvious sick contacts, denies recent travel or surgery. He smokes but denies history of asthma or COPD. He is medicated for anxiety/depression and chronic back pain with pain management contract. He denies recreational drugs. TRAVEL OUTSIDE OF THE [place] IN LAST 30 DAYS: No - Related Data Allergies/Adverse Reactions: No Known Allergies Allergy (Verified 07/06/19 12:19) Past Medical History - General Information source: Patient - Social History Smoking Status: Current Every Day Smoker Smoking Education Provided: Yes - <3 min Frequency of alcohol use: None Drug Abuse: None Lives with: Family Family History: Reviewed & Not Pertinent, CAD Patient has homicidal ideation: No - Past Medical History Cardiac Medical History: Reports: Hx Hypercholesterolemia Neurological Medical History: Reports: Hx Migraine Renal/ Medical History: Denies: Hx Peritoneal Dialysis Musculoskeletal Medical History: Reports Hx Arthritis - BACK Past Surgical History: Reports: Hx Orthopedic Surgery - right hip and shoulder - Immunizations Hx Diphtheria, Pertussis, Tetanus Vaccination: Yes - UTD Review of Systems - Review of Systems Constitutional: See HPI EENT: See HPI Cardiovascular: See HPI Respiratory: See HPI Gastrointestinal: See HPI Genitourinary: No symptoms reported Male Genitourinary: No symptoms reported Musculoskeletal: No symptoms reported Skin: No symptoms reported Hematologic/Lymphatic: No symptoms reported Neurological/Psychological: No symptoms reported Physical Exam - Vital signs Vitals: Temp Pulse Resp BP Pulse Ox 99 F 101 H 14 113/78 95 02/22/20 21:05 02/22/20 21:05 02/22/20 21:05 02/22/20 21:05 02/22/20 21:05 - Notes Notes: GENERAL: Patient appears slightly tired and slightly ill-appearing HEAD: Normocephalic, atraumatic. EYES: Pupils equal, round, and reactive to light. Extraocular movements intact. ENT: Oral mucosa moist, tongue midline. Oropharynx unremarkable. Airway patent. Nares patent, sinuses non-tender, ear canals unremarkable, TM's intact. NECK: Full range of motion. Supple. Trachea midline. No lymphadenopathy. LUNGS: Clear to auscultation bilaterally, no wheezes, rales, or rhonchi. No respiratory distress. Non-tender chest wall. HEART: Regular rate and rhythm. No murmur ABDOMEN: Soft, non-tender. Non-distended. EXTREMITIES: Moves all 4 extremities spontaneously. No edema, normal radial and dorsalis pedis pulses bilaterally. No cyanosis. BACK: no cervical, thoracic, lumbar midline tenderness. No saddle anesthesia, normal distal neurovascular exam. Moves all extremities in full range of motion. NEUROLOGICAL: Alert and oriented x3. Normal speech. Cranial nerves II through XII grossly intact. Strength 5/5 in all extremities. PSYCH: Normal affect, normal mood. SKIN: Warm, dry, normal turgor. No rashes or lesions noted. Course - Re-evaluation Re-evalutation: Patient expresses concern he might have COVID-19. On my exam he has no cough, no tachypnea, he has clear lungs. His vital signs are unremarkable. Patient appears slightly uncomfortable and ill-appearing but he is otherwise well- appearing. After nausea medication patient had no complaints, he is tolerating p.o. without any difficulty. Chest x-ray unremarkable, CBC, chemistry unremarkable, soft benign abdomen, clear lungs, no nuchal rigidity, no complaints on reevaluation. EKG and troponin unremarkable. Symptoms have been present for several days. I discussed options with patient. After discussion decision was made to provide him with dexamethasone for his overall symptoms and suspect COVID-19, he will be tested for COVID-19, discussed quarantine, expectations, and return precautions in detail. Patient states appreciation and agreement, requests work note, no additional complaints or concerns. Stable and well-appearing at time of discharge. - Vital Signs Vital signs: Temp Pulse Resp BP Pulse Ox 98.4 F 85 16 120/70 98 02/23/20 01:46 02/23/20 01:46 02/23/20 01:46 02/23/20 01:46 02/23/20 01:46 - Laboratory Result Diagrams: 02/22/20 22:31 02/22/20 22:31 Laboratory results interpreted by me: 02/22/20 22:31 Chloride 108 H Discharge - Discharge Clinical Impression: Cough, Nausea, Shortness of breath, Weakness Condition: Stable Disposition: HOME, SELF-CARE Additional Instructions: Your chest x-ray, evaluation, and work-up are reassuring. This is most likely viral and should resolve with time. You have been tested for the coronavirus, see additional instructions for this below. Take nausea medication if needed, drink plenty of fluids, and rest. Follow-up with primary care. Return for any concerning symptoms including vomiting, spiking fevers, difficulty breathing, or any other concerning or worsening symptoms. As a person under investigation for COVID-19, the [place] Department of Health and Human Services (division on public health) advises you to adhere to the following guidance until your test results are reported to you. If your test result is positive, you will receive additional information from your provider and your local health department at that time. Remain at home until you are cleared by the health provider or public health authorities. Keep a log of visitors to your home, notify any visitors to your [facility] of your isolation status. If you plan to move to a new address or leave the [facility], notify the local health department in your [facility]. Call your Doctor or seek care if you have an urgent medical need. Before seeking medical care, call him to get instructions from the provider before arriving at the medical office, clinic, or hospital. Notify them that you are being tested for the virus (COVID-19) so that arrangements can be made, as necessary, to prevent transmission to others in the healthcare setting. Next, notify the local health department in your [facility]. If a medical emergency arises and you need to call 911, inform the first responders that you are being tested for the virus that causes COVID-19. Next, notify the local health department in your county. Prescriptions: Ondansetron [Zofran Odt 4 mg Tablet] 1 - 2 tab PO Q4H PRN #15 tab.rapdis PRN Reason: For Nausea/Vomiting Forms: Return to Work
[2020-02-22 23:11] LABS: ALBUMIN 4.2 g/dL (3.5-5.0); ALKALINE PHOSPHATASE 67 U/L (38-126); ANION GAP 6 (5-19); ASPARTATE AMINO TRANSFERASE 21 U/L (17-59); BILIRUBIN,DIRECT 0.1 mg/dL (0.0-0.4); BILIRUBIN,TOTAL 0.4 mg/dL (0.2-1.3); BLOOD UREA NITROGEN 9 mg/dL (7-20); CALCIUM 9.4 mg/dL (8.4-10.2); CARBON DIOXIDE 24 mmol/L (22-30); CHLORIDE 108 mmol/L (98-107); GLUCOSE 109 mg/dL (75-110); TOTAL PROTEIN 6.8 g/dL (6.3-8.2)
--- NOTE | 2020-02-22 23:28 | RADIOLOGY REPORT (SQ) ---
EXAM DESCRIPTION: XR CHEST 1 VIEW COMPLETED DATE/TME: 02/22/2020 22:20 CLINICAL HISTORY: 39 years Male SOB COMPARISON: 02/23/2019. FINDINGS: The cardiomediastinal silhouette appears unremarkable. No consolidating infiltrates or pleural effusions. No pneumothorax. IMPRESSION: No acute abnormality is identified.
[2020-02-23] MEDS ORDERED: DEXAMETHASONE SOD PHOS INJ 10 MG/1 ML VIAL IV ONE (00:46)
[2020-02-23 01:51] VITALS: BP 120/70
--- NOTE | 2020-02-23 07:19 | EKG REPORT ---
SEVERITY:- NORMAL ECG - SINUS RHYTHM : Confirmed by: Ronal Hernandes MD 23-Feb-2020 07:18:30
== END 2020-02-23 01:46 | disposition home or self-care (01) ==
LOC: ER 20:44
DX: R06.02 Shortness of breath (principal); R05 Cough; R11.0 Nausea; R53.1 Weakness; F17.200 Nicotine dependence, unspecified, uncomplicated; R42 Dizziness and giddiness; F41.9 Anxiety disorder, unspecified; F32.9 Major depressive disorder, single episode, unspecified; M54.9 Dorsalgia, unspecified; G89.29 Other chronic pain; Z79.899 Other long term (current) drug therapy; Z20.828 Contact with and (suspected) exposure to other viral communicable diseases
CPT/HCPCS: 93005; 99406; 99285; 96374; 36415; 85025; 87635; 80053; 84484; 71045; 93010; J1100; C9803

== ENCOUNTER 2020-03-13 10:54 | Emergency (ER) | payer BC ==
[2020-03-13] MEDS ORDERED: IBUPROFEN 800 MG TABLET PO ONE (11:17)
--- NOTE | 2020-03-13 11:18 | ER Document Report ---
ED Extremity Problem, Lower - General Chief Complaint: Foot Pain Stated Complaint: FOOT PAIN Time Seen by Provider: 03/13/20 11:07 Primary Care Provider: BETTY BARROS DPM [ACTIVE STAFF] - Follow up as needed Mode of Arrival: Ambulatory Information source: Patient Notes: 39-year-old male presented to ED for complaint of pain to the right heel that is been getting worse over the last several months and pain to both knees that is been coming progressively worse. Patient is alert oriented respirations regular nonlabored speaking in full sentences. REVIEW OF SYSTEMS: CONSTITUTIONAL : Denies fever, chills, or sweats. Denies recent illness. EENT: Denies eye, ear, throat, or mouth pain or symptoms. Denies nasal or sinus congestion. CARDIOVASCULAR: Denies chest pain. RESPIRATORY: Denies cough, cold, or chest congestion. Denies shortness of breath, difficulty breathing, or wheezing. GASTROINTESTINAL: Denies abdominal pain. Denies nausea, vomiting, or diarrhea. Denies constipation. Last BM: GENITOURINARY: Denies difficulty urinating, painful urination, burning, frequency, or blood in urine. FEMALE GENITOURINARY: Denies vaginal bleeding, abnormal or irregular periods. LMP: MUSCULOSKELETAL: Chronic pain to both knees that is increasing and pain to the right heel and foot that is increasing has any new injuries SKIN: Denies rash or skin lesions. HEMATOLOGIC : Denies easy bruising or bleeding. LYMPHATIC: Denies swollen, enlarged glands. NEUROLOGICAL: Denies altered mental status or loss of consciousness. Denies headache. Denies weakness or paralysis or loss of use of either side. Denies problems with gait or speech. Denies sensory or motor loss. PSYCHIATRIC: Denies anxiety or stress or depression. ALL OTHER SYSTEMS REVIEWED AND NEGATIVE. VITAL SIGNS: Within normal limits. GENERAL: No acute distress, non-toxic appearance. HEAD: Normal with no signs of head trauma. EYES: PERRLA, EOMI, conjunctiva normal, no discharge. EARS: Hearing grossly intact. NOSE: Normal. THROAT: Oropharynx is normal. NECK: Normal range of motion, no tenderness, supple, no lymphadenopathy, No adenopathy, no JVD. CHEST: Clear breath sounds bilaterally. No wheezes, rales, or rhonchi. CARDIAC: Regular rate and rhythm. S1 and S2, without murmurs, gallops, or rubs. VASCULAR: No Edema. Peripheral pulses normal and equal in all extremities. ABDOMEN: Normal and soft with no tenderness, no masses or pulsatile masses. GASTROINTESTINAL: Bowel sounds normal GENITOURINARY: Normal, No tenderness LYMPATHTIC: No lymphadenopathy noted. MUSCULOSKELETAL: Patient has full range of motion but with tenderness to both knees and right foot. Increased tenderness to right heel NEUROLOGICAL: Alert and oriented x 3. No focal sensory or strength deficits. Speech normal. Follows commands appropriately. PSYCHIATRIC: Normal Affect, judgement and mood. SKIN: Normal appearance with no rashes or lesions. TRAVEL OUTSIDE OF THE [place] IN LAST 30 DAYS: No - HPI Patient complains to provider of: Pain, Swelling Location: Foot, Knee Occurred: Other - Chronic Onset/Duration: Intermittent Quality of pain: Achy, Dull Severity: Moderate Pain Level: 4 Recent injury: No Associated symptoms: Painful ambulation Exacerbated by: Hanging down, Movement, Walking Relieved by: Nothing - Related Data Allergies/Adverse Reactions: No Known Allergies Allergy (Verified 03/13/20 11:06) Home Medications: oxycodone 7.5 mg. depression. 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 Denies: Hx Peritoneal Dialysis Malignancy Medical History: Reports None GI Medical History: Reports: None Musculoskeletal Medical History: Reports Hx Arthritis - BACK, Reports Hx Musculoskeletal Trauma - Fractured right ankle Skin Medical History: Reports None Psychiatric Medical History: Reports: Hx Anxiety Traumatic Medical History: Reports: Hx Fractures Infectious Medical History: Reports: None - Right ankle Past Surgical History: Reports: Hx Orthopedic Surgery - right hip and shoulder - Immunizations Immunizations up to date: Yes Hx Diphtheria, Pertussis, Tetanus Vaccination: Yes - UTD Physical Exam - Vital signs Vitals: Temp Pulse Resp BP Pulse Ox 97.9 F 82 18 122/78 96 03/13/20 10:58 03/13/20 10:58 03/13/20 10:58 03/13/20 10:58 03/13/20 10:58 Course - Re-evaluation Re-evalutation: 03/13/20 21:40 X-rays of both knees were negative. He does have a heel spur. Patient was given instructions on care of heel spurs. He was given instructions on exercises for knees and feet. He was instructed to follow-up with the primary care doctor and with a machine fur cleaner. Patient verbalized understanding agreement with treatment plan. - Vital Signs Vital signs: Temp Pulse Resp BP Pulse Ox 97.7 F 68 18 124/80 99 03/13/20 12:24 03/13/20 12:24 03/13/20 12:24 03/13/20 12:24 03/13/20 12:24 - Diagnostic Test Radiology reviewed: Image reviewed, Reports reviewed Discharge - Discharge Clinical Impression: Chronic pain of both knees Heel spur Qualifiers: Laterality: right Qualified Code(s): M77.31 - Calcaneal spur, right foot Condition: Stable Disposition: HOME, SELF-CARE Additional Instructions: Plantar Fasciitis or Heel Spur Plantar fasciitis is an inflammation of a ligament on the underside of the foot. It can be caused by injury, overuse such as running, or poorly fitting shoes. There may be a bone spur on the heel if inflammation has persisted a long time. Plantar fasciitis is treated with stretching exercises and antiinflammatory medicine. More severe cases may require injection of cortisone. It may take several weeks to get better. If nothing gives relief, an operation to remove the heel spur may help. Call or return if there is redness, increasing pain, swelling, fever, or any other new symptoms. X-rays were positive for heel spurs. I did give you a written report and a CD of the x-ray. The x-rays for the knee did not show any radiological evidence of injuries. You will need to follow-up with your primary care doctor for that pain. I have also given you the name and number of a machine fur cleaner for your foot pain with heel spurs. Exercises for the Foot Muscles Stretching and strengthening of the foot muscles is an important part of recovery from injury, as well as in treatment and prevention of overuse syndromes like plantar fasciitis. TOWEL CURLS: Put your foot on a dry towel. Curl your toes to pick it up, then drop it. As it becomes easier, use a heavier towel. Repeat 20 times, twice daily. JOHN CURLS: Lift and turn your knee, so your foot is against the opposite leg about mid-john. Try to "grab" the entire john bone with your toes, while moving your foot up and down the leg for one minute. Repeat twice daily. TOE LIFTS: Put your opposite foot over your 2nd to 5th toes. Now lift the toes up, pushing the other foot upward. Repeat 10 times, twice daily. Repeat using the large toe. EVERSIONS: Cross the opposite foot over, placing the heel just behind the 4th and 5th toes. Try to lift up the outside of the bottom foot. Hold 10 seconds. Repeat twice daily. Ice Packs Apply ice packs frequently against the painful area. Many different schedules are recommended, such as "20 minutes on, 20 minutes off" or "one hour ice, two hours rest." If you need to work, you may need to go longer between ice treatments. You should plan to have the area ice packed AT LEAST one fourth of the time. The ice should be applied over the wrap, tape, or splint, or over a layer of cloth -- not directly against the skin. Some ice bags have a built-in cloth and can be put directly on the skin. Ibuprofen Ibuprofen is an excellent, safe drug for pain control. In addition, it has potent antiinflammatory effects which are beneficial, especially in the treatment of injuries, arthritis, or tendonitis. It's best to take ibuprofen with food. Persons with ulcer disease or allergy to aspirin should notify their physician of this before taking ibuprofen. Take the medication exactly as prescribed. Don't take additional doses unless instructed to do so by your doctor. If you develop wheezing, shortness of breath, hives, faintness, stomach pain, vomiting, or dark black stools, return for re-evaluation at once. FOLLOW-UP CARE: If you have been referred to a physician for follow-up care, call the physicians office for an appointment as you were instructed or within the next two days. If you experience worsening or a significant change in your symptoms, notify the physician immediately or return to the Emergency Department at any time for re-evaluation. Referrals: BETTY BARROS DPM [ACTIVE STAFF] - Follow up as needed
--- NOTE | 2020-03-13 11:47 | RADIOLOGY REPORT (SQ) ---
EXAM DESCRIPTION: OS CALCIS/HEEL RIGHT IMAGES COMPLETED DATE/TIME: 03/13/2020 11:32 am REASON FOR STUDY: severe pain COMPARISON: None. NUMBER OF VIEWS: Two views. TECHNIQUE: Plantar and lateral images acquired of the right calcaneous. LIMITATIONS: None. FINDINGS: MINERALIZATION: Normal. BONES: No acute fracture or dislocation. No worrisome bone lesions. Prominent plantar calcaneal spur. JOINTS: No erosions. No jonathan-articular osteopenia. No chondrocalcinosis. SOFT TISSUES: No swelling. No calcifications. OTHER: No other significant finding. IMPRESSION: PROMINENT HEEL SPUR. NO ACUTE FINDINGS. TECHNICAL DOCUMENTATION: JOB ID: [id number] 2010 [employer]- All Rights Reserved Reading location - IP/workstation name: [email or web address]
--- NOTE | 2020-03-13 12:04 | RADIOLOGY REPORT (SQ) ---
EXAM DESCRIPTION: FOOT RIGHT COMPLETE IMAGES COMPLETED DATE/TIME: 03/13/2020 11:47 am REASON FOR STUDY: pain getting worse COMPARISON: None. NUMBER OF VIEWS: Three views. TECHNIQUE: AP, lateral and oblique without weight bearing radiographic images acquired of the right foot. LIMITATIONS: None. FINDINGS: MINERALIZATION: Normal. BONES: No acute fracture or dislocation. No worrisome bone lesions. Prominent plantar calcaneal spur. JOINTS: No erosions. No jonathan-articular osteopenia. No chondrocalcinosis. SOFT TISSUES: No swelling. No calcifications. OTHER: No other significant finding. IMPRESSION: PROMINENT HEEL SPUR. NO ACUTE FINDINGS. TECHNICAL DOCUMENTATION: JOB ID: [id number] 2010 [employer]- All Rights Reserved Reading location - IP/workstation name: [email or web address]
--- NOTE | 2020-03-13 12:05 | RADIOLOGY REPORT (SQ) ---
EXAM DESCRIPTION: KNEE LEFT 4 VIEW IMAGES COMPLETED DATE/TIME: 03/13/2020 11:47 am REASON FOR STUDY: pain getting worse COMPARISON: None. NUMBER OF VIEWS: Four views. TECHNIQUE: AP, lateral, and both oblique radiographic images acquired of the left knee. LIMITATIONS: None. FINDINGS: MINERALIZATION: Normal. BONES: No acute fracture or dislocation. No worrisome bone lesions. No significant osteophytes. JOINT: No effusion. No chondrocalcinosis. OTHER: No other significant finding. IMPRESSION: NEGATIVE STUDY OF THE LEFT KNEE. NO EXPLANATION FOR PAIN. TECHNICAL DOCUMENTATION: JOB ID: [id number] 2010 [employer]- All Rights Reserved Reading location - IP/workstation name: [email or web address]
--- NOTE | 2020-03-13 12:06 | RADIOLOGY REPORT (SQ) ---
EXAM DESCRIPTION: KNEE RIGHT 4 VIEWS IMAGES COMPLETED DATE/TIME: 03/13/2020 11:47 am REASON FOR STUDY: pain getting worse COMPARISON: None. NUMBER OF VIEWS: Four views. TECHNIQUE: AP, lateral, and both oblique radiographic images acquired of the right knee. LIMITATIONS: None. FINDINGS: MINERALIZATION: Normal. BONES: No acute fracture or dislocation. No worrisome bone lesions. No significant osteophytes. JOINT: No effusion. No chondrocalcinosis. OTHER: No other significant finding. IMPRESSION: NEGATIVE STUDY OF THE RIGHT KNEE. NO EXPLANATION FOR PAIN. TECHNICAL DOCUMENTATION: JOB ID: [id number] 2010 [employer]- All Rights Reserved Reading location - IP/workstation name: [email or web address]
[2020-03-13 12:25] VITALS: BP 124/80
== END 2020-03-13 12:32 | disposition home or self-care (01) ==
LOC: ER 10:54
DX: M77.31 Calcaneal spur, right foot (principal); M25.561 Pain in right knee; M25.562 Pain in left knee; G89.29 Other chronic pain; F41.9 Anxiety disorder, unspecified; Z87.891 Personal history of nicotine dependence; Z79.899 Other long term (current) drug therapy; Z79.891 Long term (current) use of opiate analgesic
CPT/HCPCS: 99284

== ENCOUNTER → 2020-03-22 | Outpatient (CLI) | payer BC ==
--- NOTE | 2020-03-22 10:17 | ER RDC ASSESSMENT REPORT ---
Intake - In the Last 14 days Have you traveled outside [place]?: No Have you been in close contact with someone CONFIRMED: Yes Worked in Healthcare?: No - Symptoms Subjective Fever([place] feverish): No Chills: No Muscule Aches: No Runny Nose: No Sore Throat: No Cough (New or worsening chronic cough): No Shortness of breath: No Nausea or Vomiting: No Headache: No Abdominal Pain: No Diarrhea(3 or more loose stools in last 24 hours): No - Do you have any of the following Chronic lung disease: Asthma or emphysema or COPD: No Cystic Fibrosis: No Diabetes: No High Blood Pressure: No Cardiovascular Disease: No Chronic Kidney Disease: No Chronic Liver Disease: No Chronic blood disorder like Sickle Cell Disease: No Weak immune system due to disease or medication: No Neurologic condition that limits movement: No Developmental delay - Moderate to Severe: No Recent (within past 2 weeks) or current : No Morbid Obesity (>100 pounds over ideal weight): No - Objective Temperature: 97.3 F Pulse Rate: 73 Respiratory Rate: 18 Blood Pressure: 116/68 O2 Sat by Pulse Oximetry: 96 Objective: Given above, testing performed: If Testing Performed: Test Specimen Type Sent to General - General Information source: Patient Notes: Patient presents to the already seen for screening for the coronavirus. Patient reports an exposure at work to someone who tested positive. Patient denies any symptoms. - Related Data Allergies/Adverse Reactions: No Known Allergies Allergy (Verified 03/13/20 11:06) Past Medical History - General Information source: Patient - Social History Smoking Status: Current Every Day Smoker Family History: Reviewed & Not Pertinent, CAD - Past Medical History Cardiac Medical History: Reports: Hx Hypercholesterolemia Neurological Medical History: Reports: Hx Migraine Renal/ Medical History: Denies: Hx Peritoneal Dialysis Musculoskeletal Medical History: Reports Hx Arthritis - BACK, Reports Hx Musculoskeletal Trauma - Fractured right ankle Psychiatric Medical History: Reports: Hx Anxiety, Hx Depression Traumatic Medical History: Reports: Hx Fractures Past Surgical History: Reports: Hx Orthopedic Surgery - right hip and shoulder Physical Exam - Notes Notes: The patient was evaluated during the global Covid 19 pandemic, and that diagnosis was suspected/considered upon their initial presentation. Their evaluation, treatment and testing was consistent with current guidelines for patients who present with complaints or symptoms that may be related to Covid 19. Full physical exam could not be performed due to covid 19 isolation protocols. Constitutional: Nontoxic appearance, no acute distress Eyes: Nonicteric, extraocular movements intact, sclera clear Cardiovascular: Heart rate and rhythm regular, breath sounds clear bilaterally, no JVD Respiratory: Nonlabored breathing, no use of accessory muscles, no tachypnea Gastrointestinal: Abdomen not distended Muculoskeletal: Moves all extremities well Skin: Normal color Neuro: Awake alert oriented, normal speech Psych: Normal mood and affect Diagnostic Results Laboratory Results: Patient presents with exposure worrisome for possible Covid 19. Patient does not have emergency worrying symptoms such as difficulty breathing, shortness of breath, chest pain, pressure, confusion or cyanosis. Patient appears suitable for discharge as they are not of an advanced age, do not have any chronic medical conditions such as diabetes, CAD, immune deficiency, chronic lung disease or chronic kidney disease. Patient's vital signs are stable and patient is nontoxic in appearance. Good return precautions have been discussed with patient, patient verbalized understanding and is agreeable with discharge plan of care at this time. Patient Education/Counseling Counseling/Education: Patient was provided with discharge information including: As a person under investigation for Covid 19, the [place] department of Health and Human Services, division of public health advises you to adhere to the following guidance until your test results are reported to you. If your test result is positive, you will receive additional information from your provider and your local health department at that time. Remain at home until you are cleared by the health provider or public health authorities. Keep a log of visitors to your home, notify any visitors to your home of your isolation status. If you plan to move to a new address or leave the [facility], notify the local health department in your County. Call your doctor or seek care if you have an urgent medical need. Before seeking medical care, call ahead to get instructions from the provider before arriving at the medical office clinic or hospital. Notify them that you are being tested for the virus that causes Covid 19 so that arrangements can be made, as necessary, to prevent transmission to others in the healthcare setting. Next, notify the local health department in your county. If a medical emergency arises and you need to call 911, inform the first resp onders that you are being tested for the virus that causes Covid 19. Next, notify the local health department in your county. RDC Discharge - Discharge Clinical Impression: Encounter for screening laboratory testing for COVID-19 virus in asymptomatic patient Condition: Stable Disposition: Home; Selfcare
[2020-03-22 10:18] VITALS: BP 116/68
== END ==
LOC: RDC 09:40
PROVIDERS: ATTEND Nurse Practitioner Family
DX: Z20.828 Contact with and (suspected) exposure to other viral communicable diseases (principal); E78.00 Pure hypercholesterolemia, unspecified; F17.200 Nicotine dependence, unspecified, uncomplicated
CPT/HCPCS: U0003; C9803; 87635; 99201; 99211

== ENCOUNTER → 2020-05-14 | Outpatient (CLI) | payer BC ==
--- NOTE | 2020-05-14 11:10 | RADIOLOGY REPORT (SQ) ---
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 TECHNIQUE: CT scanogram of the bilateral lower extremities is performed including pelvis to ankles. Measurements of femur, tibia, and entire lower extremities performed by the radiologist and saved to PACS. All CT scanners at this facility use dose modulation, iterative reconstruction, and/or weight based d osing when appropriate to reduce radiation dose to as low as reasonably achievable (ALARA). [facility]: Dose Right [facility]: CareDose [facility]: Dose Right [facility]: Teradose 4D [facility]: 2degreesmobile RADIATION DOSE: mGy. LIMITATIONS: None. FINDINGS: RIGHT: FEMUR: 48.6 cm. TIBIA: 38.46 cm. TOTAL RIGHT LOWER EXTREMITY LENGTH (INCLUDES THE KNEE JOINT SPACE): 87.48 cm. LEFT: FEMUR: 48.8 cm. TIBIA: 39.22 cm. TOTAL LEFT LOWER EXTREMITY LENGTH (INCLUDES THE KNEE JOINT SPACE): 88.52 cm. IMPRESSION: LEG LENGTH MEASUREMENTS DETAILED ABOVE. TECHNICAL DOCUMENTATION: JOB ID: [id number] Quality ID # [id number]: Final reports with documentation of one or more dose reduction techniques (e.g., Au tomated exposure control, adjustment of the mA and/or kV according to patient size, use of iterative reconstruction technique) 2010 [employer]- All Rights Reserved Reading location - IP/workstation name: [email or web address]
== END ==
LOC: RAD 10:20
PROVIDERS: ATTEND Podiatrist Foot & Ankle Surgery
DX: Q72.819 Congenital shortening of unspecified lower limb (principal)
CPT/HCPCS: 77073

== ENCOUNTER 2020-07-14 16:13 | Emergency (ER) | payer BC | END 2020-07-14 16:35 | disposition left against medical advice (07) | LOC: ER 16:13 | DX: Z53.21 Procedure and treatment not carried out due to patient leaving prior to being seen by health care provider (principal) ==